=== PATIENT | male | born 1940 | race Caucasian/White ===

== ENCOUNTER 2020-07-23 06:59 | Outpatient (REF) | payer MEDICARE, SELFPAY ==
[2020-07-23 08:23] LABS: MANUAL DIFF FLAG NO
[2020-07-23 08:27] LABS: Basophils Percent Auto 0.3 % (0-2); Eosinophils Absolute Auto 0.1 X10*3/uL (0.0-0.4); Eosinophils Percent Auto 1.9 % (0-4); Hematocrit 38.7 % (42-52); Imm Gran Abs Auto 0.05 X10*3/uL (0.00-0.03); Imm Gran Pct Auto 0.8 % (0.0-0.4); Lymphocytes Absolute Auto 1.8 X10*3/uL (1.2-4.9); Lymphocytes Percent Auto 29.7 % (20-40); Mean Corpuscular HGB Conc 33.6 g/dl (31.0-36.0); Mean Corpuscular Hemoglobin 32.4 pg (27.0-33.0); Mean Corpuscular Volume 96.5 fL (80-98); Mean Platelet Volume 11.2 fL (9.4-12.4); Monocytes Absolute Auto 0.5 X10*3/uL (0.1-1.2); Monocytes Percent Auto 8.3 % (2-11); Neutrophils Absolute Auto 3.5 X10*3/uL (2.0-8.3); Platelet Count 186 X10*3/uL (160-400); Red Blood Count 4.01 X10*6/uL (4.60-5.80); Red Cell Distribution Width 12.5 % (11.0-16.0); White Blood Count 5.9 X10*3/uL (4.8-10.8)
[2020-07-23 08:36] LABS: Alanine Aminotransferase 7 U/L (0-40); Albumin Level 3.7 g/dL (3.5-5.0); Alkaline Phosphatase 71 U/L (39-117); Anion Gap 11 (12-20); Aspartate Amino Transferase 10 U/L (5-37); Bilirubin Total 0.6 mg/dL (0.0-1.0); Blood Urea Nitrogen 25 mg/dL (9-16); Calcium 9.2 mg/dL (8.4-10.2); Carbon Dioxide 25 mmol/L (22-29); Chloride 104 mmol/L (96-108); Estimated Glomerular Filt Rate > 60; Glucose Fasting 96 mg/dL (60-99); Lactate Dehydrogenase 135 U/L (118-273); Potassium 4.3 mmol/l (3.3-5.1); Sodium 136 mmol/L (135-145); Total Protein 6.4 g/dL (6.5-8.0)
[2020-07-28 12:42] LABS: Testosterone, Total 11 ng/dL (250-1100)
== END 2020-07-23 07:00 | disposition home or self-care (01) ==
LOC: HO.HSH3E 06:59
PROVIDERS: Visit Provider Nurse Practitioner
DX: C61 Malignant neoplasm of prostate (principal)
CPT/HCPCS: 36415; 80053; 83615; 84153; 84403; 85025

== ENCOUNTER 2020-08-27 05:50 | Outpatient (REF) | payer MEDICARE, SELFPAY ==
[2020-08-26 08:07] LABS: MANUAL DIFF FLAG NO
[2020-08-26 08:09] LABS: Basophils Percent Auto 0.3 % (0-2); Eosinophils Absolute Auto 0.1 X10*3/uL (0.0-0.4); Eosinophils Percent Auto 0.9 % (0-4); Hematocrit 38.8 % (42-52); Hemoglobin 13.2 g/dl (14.0-18.0); Imm Gran Abs Auto 0.05 X10*3/uL (0.00-0.03); Imm Gran Pct Auto 0.9 % (0.0-0.4); Lymphocytes Percent Auto 34.3 % (20-40); Mean Corpuscular Hemoglobin 32.8 pg (27.0-33.0); Mean Corpuscular Volume 96.3 fL (80-98); Mean Platelet Volume 10.8 fL (9.4-12.4); Monocytes Absolute Auto 0.5 X10*3/uL (0.1-1.2); Monocytes Percent Auto 7.8 % (2-11); Neutrophils Absolute Auto 3.2 X10*3/uL (2.0-8.3); Neutrophils Percent Auto 55.8 % (45-73); Platelet Count 210 X10*3/uL (160-400); Red Blood Count 4.03 X10*6/uL (4.60-5.80); Red Cell Distribution Width 12.9 % (11.0-16.0); White Blood Count 5.8 X10*3/uL (4.8-10.8)
[2020-08-26 08:38] LABS: Alanine Aminotransferase 10 U/L (0-40); Albumin Level 3.7 g/dL (3.5-5.0); Alkaline Phosphatase 72 U/L (39-117); Anion Gap 13 (12-20); Aspartate Amino Transferase 11 U/L (5-37); Bilirubin Total 0.8 mg/dL (0.0-1.0); Blood Urea Nitrogen 21 mg/dL (9-16); Calcium 9.4 mg/dL (8.4-10.2); Carbon Dioxide 26 mmol/L (22-29); Chloride 103 mmol/L (96-108); Estimated Glomerular Filt Rate > 60; Glucose Fasting 108 mg/dL (60-99); Potassium 5.2 mmol/l (3.3-5.1); Sodium 137 mmol/L (135-145); Total Protein 6.5 g/dL (6.5-8.0)
[2020-08-31 16:22] LABS: Testosterone, Total 7 ng/dL (250-1100)
== END 2020-08-27 05:51 | disposition home or self-care (01) ==
LOC: HO.HSH3E 05:50
PROVIDERS: Visit Provider Internal Medicine Medical Oncology
DX: I10 Essential (primary) hypertension (principal); E03.9 Hypothyroidism, unspecified; Z12.5 Encounter for screening for malignant neoplasm of prostate
CPT/HCPCS: 36415; 80053; 84153; 84403; 85025

== ENCOUNTER 2020-10-09 15:02 | Outpatient (REF) | payer MEDICARE, SELFPAY ==
[2020-10-09 15:14] LABS: Glucose Urine UA NEG (NEG); Leukocyte Esterase Urine TRACE (NEG); Nitrite Urine POS (NEG); Specific Gravity - Urine >= 1.030 (1.005-1.025); UACC Culture Trigger YES; Urine Blood TRACE (NEG); Urine Ketones NEG (NEG); Urine Protein NEG (NEG-TRACE)
[2020-10-09 15:21] LABS: Appearance Urine HAZY; Color Urine YELLOW
[2020-10-09 15:25] LABS: Bacteria Urine TRACE /LPF; Mucus Urine 1+ /LPF; Squamous Epithelial Cell Urine 1+ /LPF
== END 2020-10-09 15:03 | disposition home or self-care (01) ==
LOC: HO.HSH3E 15:02
PROVIDERS: Visit Provider Internal Medicine Medical Oncology
DX: R35.0 Frequency of micturition (principal)
CPT/HCPCS: 81001; 81003; 87086

== ENCOUNTER 2020-10-11 18:47 | Outpatient (REF) | payer MEDICARE, SELFPAY ==
[2020-10-11 18:54] LABS: Appearance Urine CLEAR; Color Urine YELLOW; Glucose Urine UA NEG (NEG); Leukocyte Esterase Urine TRACE (NEG); Nitrite Urine POS (NEG); PH 5.5 (5.0-8.0); Specific Gravity - Urine >= 1.030 (1.005-1.025); UACC Culture Trigger YES; Urine Blood TRACE (NEG); Urine Ketones NEG (NEG); Urine Protein NEG (NEG-TRACE)
[2020-10-11 19:01] LABS: Bacteria Urine 2+ /LPF; Calcium Oxalate Crystals Urine TRACE /LPF; RBC Urine 0-2 /HPF (0); WBC Urine 0-2 /HPF (0-4)
== END 2020-10-11 18:48 | disposition home or self-care (01) ==
LOC: HO.LNP 18:47
PROVIDERS: Visit Provider Internal Medicine Medical Oncology
DX: R30.0 Dysuria (principal)
CPT/HCPCS: 81001; 81003; 87086; 87088; 87186

== ENCOUNTER 2020-10-18 07:47 | Outpatient (REF) | payer MEDICARE, SELFPAY ==
[2020-10-18 08:57] LABS: MANUAL DIFF FLAG NO
[2020-10-18 09:02] LABS: Basophils Percent Auto 0.2 % (0-2); Eosinophils Absolute Auto 0.1 X10*3/uL (0.0-0.4); Eosinophils Percent Auto 2.4 % (0-4); Hematocrit 39.3 % (42-52); Hemoglobin 12.9 g/dl (14.0-18.0); Imm Gran Abs Auto 0.02 X10*3/uL (0.00-0.03); Imm Gran Pct Auto 0.4 % (0.0-0.4); Lymphocytes Absolute Auto 1.9 X10*3/uL (1.2-4.9); Lymphocytes Percent Auto 37.4 % (20-40); Mean Corpuscular HGB Conc 32.8 g/dl (31.0-36.0); Mean Corpuscular Hemoglobin 32.3 pg (27.0-33.0); Mean Corpuscular Volume 98.3 fL (80-98); Mean Platelet Volume 11.1 fL (9.4-12.4); Monocytes Absolute Auto 0.5 X10*3/uL (0.1-1.2); Monocytes Percent Auto 10.4 % (2-11); Neutrophils Absolute Auto 2.5 X10*3/uL (2.0-8.3); Neutrophils Percent Auto 49.2 % (45-73); Platelet Count 182 X10*3/uL (160-400); Red Cell Distribution Width 12.8 % (11.0-16.0)
[2020-10-18 09:31] LABS: Alanine Aminotransferase 7 U/L (0-40); Albumin Level 3.8 g/dL (3.5-5.0); Alkaline Phosphatase 71 U/L (39-117); Anion Gap 13 (12-20); Aspartate Amino Transferase 11 U/L (5-37); Bilirubin Total 0.6 mg/dL (0.0-1.0); Blood Urea Nitrogen 23 mg/dL (9-16); Calcium 9.2 mg/dL (8.4-10.2); Carbon Dioxide 26 mmol/L (22-29); Chloride 103 mmol/L (96-108); Estimated Glomerular Filt Rate > 60; Glucose Fasting 90 mg/dL (60-99); Lactate Dehydrogenase 144 U/L (118-273); Potassium 4.6 mmol/L (3.3-5.1); Sodium 137 mmol/L (135-145); Total Protein 6.4 g/dL (6.5-8.0)
[2020-10-23 18:11] LABS: Testosterone, Total 9 ng/dL (250-1100)
== END 2020-10-18 07:48 | disposition home or self-care (01) ==
LOC: HO.HSH3E 07:47
PROVIDERS: Visit Provider Internal Medicine Endocrinology, Diabetes & Metabolism
DX: Z12.5 Encounter for screening for malignant neoplasm of prostate (principal); C61 Malignant neoplasm of prostate
CPT/HCPCS: 36415; 80053; 83615; 84153; 84403; 85025

== ENCOUNTER 2021-01-15 07:07 | Outpatient (REF) | payer MEDICARE, SELFPAY ==
[2021-01-15 09:09] LABS: Hematocrit 36.4 % (42-52); Hemoglobin 12.2 g/dl (14.0-18.0); Mean Corpuscular HGB Conc 33.5 g/dl (31.0-36.0); Mean Corpuscular Hemoglobin 32.7 pg (27.0-33.0); Mean Corpuscular Volume 97.6 fL (80-98); Mean Platelet Volume 10.9 fL (9.4-12.4); Platelet Count 165 X10*3/uL (160-400); Red Blood Count 3.73 X10*6/uL (4.60-5.80); Red Cell Distribution Width 12.6 % (11.0-16.0); White Blood Count 5.1 X10*3/uL (4.8-10.8)
[2021-01-15 09:30] LABS: Alanine Aminotransferase 7 U/L (0-40); Albumin Level 3.8 g/dL (3.5-5.0); Alkaline Phosphatase 68 U/L (39-117); Anion Gap 11 (12-20); Aspartate Amino Transferase 11 U/L (5-37); Bilirubin Total 0.8 mg/dL (0.0-1.0); Blood Urea Nitrogen 32 mg/dL (9-16); Calcium 9.4 mg/dL (8.4-10.2); Carbon Dioxide 25 mmol/L (22-29); Chloride 106 mmol/L (96-108); Estimated Glomerular Filt Rate > 60; Glucose Random 93 mg/dL (60-115); Potassium 5.5 mmol/L (3.3-5.1); Sodium 136 mmol/L (135-145); Total Protein 6.3 g/dL (6.5-8.0)
[2021-01-15 09:59] LABS: Free T4 (Free Thyroxine) 1.01 ng/dL (0.71-1.85); Prostate Specific Antigen 8.11 ng/mL (<0.05-4.0); Thyroid Stimulating Hormone 2.06 uIU/mL (0.32-4.0); Vitamin D 25-OH Total 44.4 ng/mL (>30)
[2021-01-19 17:02] LABS: Testosterone, Total 8 ng/dL (250-1100)
== END 2021-01-15 07:08 | disposition home or self-care (01) ==
LOC: HO.HSH3E 07:07
PROVIDERS: Visit Provider Internal Medicine Medical Oncology
DX: E03.9 Hypothyroidism, unspecified (principal); C61 Malignant neoplasm of prostate; Z12.5 Encounter for screening for malignant neoplasm of prostate
CPT/HCPCS: 36415; 80053; 82306; 84153; 84403; 84439; 84443; 85027

== ENCOUNTER 2021-01-27 07:38 | Outpatient (REF) | payer MEDICARE, SELFPAY ==
[2021-01-31 02:01] LABS: Testosterone, Total 19 ng/dL (250-1100)
== END 2021-01-27 07:39 | disposition home or self-care (01) ==
LOC: HO.HSH3E 07:38
PROVIDERS: Visit Provider Internal Medicine Medical Oncology
DX: Z12.5 Encounter for screening for malignant neoplasm of prostate (principal); C61 Malignant neoplasm of prostate
CPT/HCPCS: 36415; 84153; 84403

== ENCOUNTER 2021-02-04 05:30 | Outpatient (REF) | payer MEDICARE, SELFPAY ==
[2021-02-04 06:21] LABS: Basophils Percent Auto 0.1 % (0-2); Eosinophils Percent Auto 0.6 % (0-4); Hematocrit 36.9 % (42-52); Hemoglobin 12.6 g/dl (14.0-18.0); Imm Gran Abs Auto 0.04 X10*3/uL (0.00-0.03); Imm Gran Pct Auto 0.6 % (0.0-0.4); Lymphocytes Absolute Auto 1.5 X10*3/uL (1.2-4.9); Lymphocytes Percent Auto 21.6 % (20-40); MANUAL DIFF FLAG NO; Mean Corpuscular HGB Conc 34.1 g/dl (31.0-36.0); Mean Corpuscular Volume 96.6 fL (80-98); Mean Platelet Volume 10.6 fL (9.4-12.4); Monocytes Absolute Auto 0.5 X10*3/uL (0.1-1.2); Monocytes Percent Auto 7.6 % (2-11); Neutrophils Absolute Auto 4.7 X10*3/uL (2.0-8.3); Neutrophils Percent Auto 69.5 % (45-73); Platelet Count 181 X10*3/uL (160-400); Red Blood Count 3.82 X10*6/uL (4.60-5.80); Red Cell Distribution Width 12.6 % (11.0-16.0); White Blood Count 6.8 X10*3/uL (4.8-10.8)
[2021-02-04 06:47] LABS: Potassium 5.8 mmol/L (3.3-5.1)
[2021-02-04 10:24] LABS: Prostate Specific Antigen Scr 8.79 ng/mL (<0.05-4.0)
== END 2021-02-04 05:31 | disposition home or self-care (01) ==
LOC: HO.HSH3E 05:30
PROVIDERS: Visit Provider Internal Medicine Medical Oncology
DX: C61 Malignant neoplasm of prostate (principal)
CPT/HCPCS: 36415; 84132; 84153; 85025

== ENCOUNTER 2021-04-16 05:00 | Outpatient (REF) | payer MEDICARE, SELFPAY ==
[2021-04-16 07:54] LABS: MANUAL DIFF FLAG NO
[2021-04-16 07:57] LABS: Basophils Percent Auto 0.5 % (0-2); Eosinophils Absolute Auto 0.2 X10*3/uL (0.0-0.4); Eosinophils Percent Auto 1.7 % (0-4); Hematocrit 43.6 % (42-52); Hemoglobin 14.6 g/dl (14.0-18.0); Imm Gran Abs Auto 0.04 X10*3/uL (0.00-0.03); Imm Gran Pct Auto 0.5 % (0.0-0.4); Lymphocytes Absolute Auto 2.4 X10*3/uL (1.2-4.9); Lymphocytes Percent Auto 27.4 % (20-40); Mean Corpuscular HGB Conc 33.5 g/dl (31.0-36.0); Mean Corpuscular Hemoglobin 32.4 pg (27.0-33.0); Mean Corpuscular Volume 96.7 fL (80-98); Mean Platelet Volume 11.7 fL (9.4-12.4); Monocytes Absolute Auto 0.7 X10*3/uL (0.1-1.2); Monocytes Percent Auto 7.8 % (2-11); Neutrophils Absolute Auto 5.4 X10*3/uL (2.0-8.3); Neutrophils Percent Auto 62.1 % (45-73); Platelet Count 199 X10*3/uL (160-400); Red Blood Count 4.51 X10*6/uL (4.60-5.80); White Blood Count 8.7 X10*3/uL (4.8-10.8)
[2021-04-16 08:12] LABS: Alanine Aminotransferase 50 U/L (0-40); Albumin Level 3.6 g/dL (3.5-5.0); Alkaline Phosphatase 114 U/L (39-117); Anion Gap 16 (12-20); Aspartate Amino Transferase 21 U/L (5-37); Blood Urea Nitrogen 22 mg/dL (9-16); Calcium 9.9 mg/dL (8.4-10.2); Carbon Dioxide 26 mmol/L (22-29); Chloride 100 mmol/L (96-108); Estimated Glomerular Filt Rate > 60; Glucose Random 94 mg/dL (60-115); Lactate Dehydrogenase 129 U/L (118-273); Potassium 4.6 mmol/L (3.3-5.1); Sodium 137 mmol/L (135-145); Total Protein 6.1 g/dL (6.5-8.0)
[2021-04-16 09:17] LABS: Prostate Specific Antigen 22.44 ng/mL (<0.05-4.0)
[2021-04-22 12:07] LABS: Testosterone, Total <1 ng/dL (250-1100)
== END 2021-04-16 05:01 ==
LOC: HO.HSH3E 05:00
PROVIDERS: Visit Provider Internal Medicine Medical Oncology
DX: Z12.5 Encounter for screening for malignant neoplasm of prostate (principal); C61 Malignant neoplasm of prostate
CPT/HCPCS: 36415; 80053; 83615; 84153; 84403; 85025

== ENCOUNTER 2021-04-23 18:29 | Inpatient (IN) | payer MEDICARE, SELFPAY ==
--- NOTE | ~2021-04-23 | CT_ITS ---
EXAMINATION: CT HEAD WITHOUT CONTRAST CLINICAL INFORMATION: Vomiting, history of prostate cancer. COMPARISON: None TECHNIQUE: Contiguous axial imaging was performed from the skull base to vertex without intravenous administration of contrast. This CT examination was performed using dose optimization techniques as appropriate, variously including the following: *Automated exposure control *Adjustment of mA and/or kV according to patient size (this includes techniques or standardized protocols for targeted exams where dose is matched to indication/reason for exam; i.e. extremities or head) *Use of iterative reconstruction technique DLP: 713 mGy-cm FINDINGS: There is no evidence of acute intracranial hemorrhage or territorial infarction. There is a right frontal lobe and right occipital lobe encephalomalacia from old insult. No abnormal mass effect or midline shift is seen. Ball to white matter differentiation is well preserved. No extra-axial fluid collections are identified. The ventricles are normal in size. There is no abnormal attenuation within the brain parenchyma. The osseous structures and soft tissues are normal. The mastoid air cells and visualized portions of the paranasal sinuses are well aerated. CT/CT head/brain wo con IMPRESSION: No acute intracranial process seen. Old right frontal lobe and right occipital lobe encephalomalacia from old insult.
--- NOTE | ~2021-04-23 | CT_ITS ---
EXAMINATION: CT ABDOMEN AND PELVIS WITHOUT CONTRAST CLINICAL INFORMATION: Vomiting. Question small bowel obstruction COMPARISON: None. TECHNIQUE: Multidetector volumetric imaging was performed from the lung bases through the pubic symphysis. Sagittal and coronal reformatted images were obtained on the technologist workstation. This CT examination was performed using dose optimization techniques as appropriate, variously including the following: *Automated exposure control *Adjustment of mA and/or kV according to patient size (this includes techniques or standardized protocols for targeted exams where dose is matched to indication/reason for exam; i.e. extremities or head) *Use of iterative reconstruction technique FINDINGS: The lack of intravenous contrast limits evaluation of the solid visceral organs including the liver, spleen, pancreas, and kidneys. LUNG BASES: There patchy areas of interlobular septal thickening and reticulation with intervening groundglass opacity in the right lower lobe. There are minimal similar clustered changes in the most inferior aspect of the left lower lobe as well. Small pericardial effusion is present. Prominent epicardial fat. LIVER, GALLBLADDER, AND BILIARY TREE: Limited non-contrast evaluation is normal. No gross focal hepatic lesion. Normal liver size and contour. No gross biliary ductal dilation. There is layering density in the gallbladder which may represent hyperdense bile or sludge. PANCREAS: Limited non-contrast evaluation is normal. No rahul-pancreatic fluid. SPLEEN: Limited non-contrast evaluation is normal. ADRENAL GLANDS: There is diffuse low-density thickening of both adrenal glands which could reflect adrenal hyperplasia KIDNEYS AND URETERS: Extensive vascular calcifications in the renal hilum. No calculi or hydronephrosis. GASTROINTESTINAL TRACT: Stomach and small bowel are nondilated. Scattered colonic diverticulosis. No evidence of colitis or diverticulitis. No pneumatosis. No colonic wall thickening or pericolonic inflammatory changes. There is a moderate volume of stool in the rectal vault. No rectal wall thickening or perirectal inflammatory changes to suggest or colitis however. ABDOMINAL WALL: Midline laparotomy changes. LYMPH NODES: No pathologically enlarged lymph nodes in the abdomen or pelvis. VASCULAR: Severe circumferential calcified atherosclerotic changes of the aorta and bilateral iliac arteries. No aneurysm. BLADDER: Unremarkable. PELVIC VISCERA: Prostate is surgically absent. OSSEOUS STRUCTURES: Multilevel compression fractures are seen. There is age-indeterminate vertebral plana of L4. There is mild superior endplate compression deformity of L5. There is superior endplate compression deformity of L2. Severe lower lumbar facet arthropathy. Prior ORIF of the left hip with 3 compression screws. Healed right inferior pubic ramus fracture. CT/CT abdomen pelvis wo con IMPRESSION: No small bowel obstruction. There are nonspecific abnormalities at the lung bases which could be chronic, for example from fibrosis, or reflect acute infection/inflammation. Multiple age-indeterminate lumbar compression fractures, most notably at L4 and L5. Correlate with symptoms of back pain. Extensive calcified atherosclerotic vascular disease.
--- NOTE | ~2021-04-23 | XR_ITS ---
EXAMINATION: XR CHEST CLINICAL INFORMATION: Pneumonia. COMPARISON: None TECHNIQUE: Frontal view of the chest was obtained. FINDINGS: No focal airspace consolidation. No pleural effusion or pneumothorax. Unremarkable cardiomediastinal silhouette. Partially visualized orthopedic hardware within the left humerus. XR/XR chest 1V IMPRESSION: No acute cardiopulmonary findings.
[2021-04-23 18:48] VITALS: BP 151/68; PULSE 133; RESP 16; O2SAT 96; BMI 23.8
--- NOTE | 2021-04-23 19:00 | ED.NAVMDI ---
HPI - Nausea/Vomiting/Diarrhea General Chief complaint: Nausea/Vomiting/Diarrhea Stated complaint: TACHYCARDIA, N/V X 1 WEEK Time Seen by Provider: 04/23/21 18:46 Source: patient, EMS and RN notes reviewed Mode of arrival: EMS History of Present Illness HPI Narrative: Patient from correction with history of dementia prostate cancer recurrent UTIs history of PTSD and alcohol dependence sent from correction for tachycardia with heart rate in the 130s and projectile vomiting multiple times today. Patient denies any abdominal pain or abdominal distention moving his bowels normally Related Data Allergies Allergy/AdvReac Type Severity Reaction Status Date / Time No Known Allergies Allergy Verified 04/23/21 19:00 Review of Systems Review of Systems: Yes all other systems are reviewed and are negative [facility] Past Medical History Medical History Alcohol dependence Anxiety Benign prostatic hyperplasia Dementia Depression Hypothyroidism Obesity Prostate cancer Psoriasis PTSD (post-traumatic stress disorder) Urinary incontinence Social History Social History Advance Directives: No Advance Directives Information Provided: Yes Physical Exam Vital Signs: Vital Signs: Last Vital Signs Pulse 123 H 04/23/21 22:30 Resp 16 04/23/21 22:30 BP 138/67 04/23/21 22:30 Pulse Ox 98 04/23/21 22:30 Body Mass Index 23.8 Appearance: Alert. Oriented X3. No acute distress. Vomited 1 time in the ER Eyes: No pallor or icterus ENT: Pharynx normal. Oral Mucosa moist Neck: Normal inspection. Neck supple. CVS: Normal heart rate and rhythm. Pulses normal. Respiratory: No respiratory distress. Equal air entry bilateral, no wheezing/rales/rhonchi Abdomen: Soft and nontender. Bowel sounds are present, no mass palpable, no CVA tenderness Skin: Skin warm and dry. Normal skin color. Normal skin turgor. Extremities: No lower extremity edema. No calf tenderness Neuro: Oriented x 3. No motor deficit. MDM - Nausea/Vomiting/Diarrhea MDM Narrative Medical decision making narrative: Patient with PHILIP with leukocytosis with lactic acidosis meeting criteria for sepsis likely UTI will start patient on IV Rocephin IV fluids were given more than 30 cc/kilogram Lab Data Attestation: I reviewed the patient's lab results. Result diagrams: 04/23/21 19:23 04/23/21 19:23 Labs: Lab Results 04/23/21 04/23/21 04/23/21 Range/Units 19:23 19:23 19:23 WBC 22.2 H (4.8-10.8) X10*3/uL RBC 4.53 L (4.60-5.80) X10*6/uL Hgb 14.7 (14.0-18.0) g/dl Hct 43.4 (42-52) % MCV 95.8 (80-98) fL MCH 32.5 (27.0-33.0) pg MCHC 33.9 (31.0-36.0) g/dl RDW 12.0 (11.0-16.0) % Plt Count 219 (160-400) X10*3/uL MPV 11.2 (9.4-12.4) fL Immature Gran % (Auto) 0.5 H (0.0-0.4) % Neut % (Auto) 85.6 H (45-73) % Lymph % (Auto) 7.8 L (20-40) % Knott % (Auto) 5.8 (2-11) % Eos % (Auto) 0.1 (0-4) % Baso % (Auto) 0.2 (0-2) % Lymph # (Auto) 1.7 (1.2-4.9) X10*3/uL Knott # (Auto) 1.3 H (0.1-1.2) X10*3/uL Eos # (Auto) 0.0 (0.0-0.4) X10*3/uL Baso # (Auto) 0.0 (0.0-0.2) X10*3/uL Abs Immat Gran (auto) 0.12 H (0.00-0.03) X10*3/uL Absolute Neuts (auto) 19.0 H (2.0-8.3) X10*3/uL Absolute Nucleated RBC 0.000 (0.0-0.012) X10*3/uL Nucleated RBC % (auto) 0.0 (0.0-0.2) /100WBC PT 10.7 (9.9-13.0) SEC INR 0.9 (0.9-1.1) Sodium 136 (135-145) mmol/L Potassium 4.4 (3.3-5.1) mmol/L Chloride 101 (96-108) mmol/L Carbon Dioxide 20 L (22-29) mmol/L Anion Gap 19 (12-20) BUN 35 H D (9-16) mg/dL Creatinine 1.60 H (0.5-1.4) mg/dL Estim Creat Clear Calc 40.5 Estimated GFR 42 Random Glucose 121 H (60-115) mg/dL Lactic Acid (0.5-2.0) mmol/L Calcium 9.7 (8.4-10.2) mg/dL Magnesium 1.9 (1.6-2.6) mg/dL Total Bilirubin 1.1 H (0.0-1.0) mg/dL AST 37 D (5-37) U/L ALT 48 H (0-40) U/L Alkaline Phosphatase 109 (39-117) U/L Total Protein 6.3 L (6.5-8.0) g/dL Albumin 3.4 L (3.5-5.0) g/dL Lipase 7 L (8-78) U/L Urine Color Urine Appearance Urine pH (5.0-8.0) Ur Specific [place] (1.005-1.025) Urine Protein (NEG-TRACE) MG/DL Urine Glucose (UA) (NEG) MG/DL Urine Ketones (NEG) MG/DL Urine Blood (NEG) Urine Nitrite (NEG) Ur Leukocyte Esterase (NEG) Urine RBC (0) /HPF Urine WBC (0-4) /HPF Ur Squamous Epith Cells /LPF Urine Bacteria /LPF Hyaline Casts /LPF Granular Casts /LPF Urine Mucus /LPF COVID-19 (SELENA) (Negative) COVID-19 Clin Com 04/23/21 04/23/21 04/23/21 Range/Units 19:23 19:23 22:00 WBC (4.8-10.8) X10*3/uL RBC (4.60-5.80) X10*6/uL Hgb (14.0-18.0) g/dl Hct (42-52) % MCV (80-98) fL MCH (27.0-33.0) pg MCHC (31.0-36.0) g/dl RDW (11.0-16.0) % Plt Count (160-400) X10*3/uL MPV (9.4-12.4) fL Immature Gran % (Auto) (0.0-0.4) % Neut % (Auto) (45-73) % Lymph % (Auto) (20-40) % Knott % (Auto) (2-11) % Eos % (Auto) (0-4) % Baso % (Auto) (0-2) % Lymph # (Auto) (1.2-4.9) X10*3/uL Knott # (Auto) (0.1-1.2) X10*3/uL Eos # (Auto) (0.0-0.4) X10*3/uL Baso # (Auto) (0.0-0.2) X10*3/uL Abs Immat Gran (auto) (0.00-0.03) X10*3/uL Absolute Neuts (auto) (2.0-8.3) X10*3/uL Absolute Nucleated RBC (0.0-0.012) X10*3/uL Nucleated RBC % (auto) (0.0-0.2) /100WBC PT (9.9-13.0) SEC INR (0.9-1.1) Sodium (135-145) mmol/L Potassium (3.3-5.1) mmol/L Chloride (96-108) mmol/L Carbon Dioxide (22-29) mmol/L Anion Gap (12-20) BUN (9-16) mg/dL Creatinine (0.5-1.4) mg/dL Estim Creat Clear Calc Estimated GFR Random Glucose (60-115) mg/dL Lactic Acid 3.9 H* (0.5-2.0) mmol/L Calcium (8.4-10.2) mg/dL Magnesium (1.6-2.6) mg/dL Total Bilirubin (0.0-1.0) mg/dL AST (5-37) U/L ALT (0-40) U/L Alkaline Phosphatase (39-117) U/L Total Protein (6.5-8.0) g/dL Albumin (3.5-5.0) g/dL Lipase (8-78) U/L Urine Color YELLOW Urine Appearance HAZY Urine pH 6.0 (5.0-8.0) Ur Specific [place] >= 1.030 H (1.005-1.025) Urine Protein 1+ H (NEG-TRACE) MG/DL Urine Glucose (UA) NEG (NEG) MG/DL Urine Ketones NEG (NEG) MG/DL Urine Blood 1+ H (NEG) Urine Nitrite POS H (NEG) Ur Leukocyte Esterase TRACE H (NEG) Urine RBC 1-4 (0) /HPF Urine WBC 1-4 (0-4) /HPF Ur Squamous Epith Cells 1+ /LPF Urine Bacteria 3+ /LPF Hyaline Casts 1-4 /LPF Granular Casts 10-14 /LPF Urine Mucus 2+ /LPF COVID-19 (SELENA) Negative (Negative) COVID-19 Clin Com See Note ECG Data Attestation: I personally reviewed and interpreted this ECG as follows: Interpretation: Junctional rhythm with heart rate 124 beats per minute left axis deviation no acute ST T wave changes for baseline no acute ischemia Discharge Plan Discharge Clinical Impression: UTI (urinary tract infection) Qualifiers: Urinary tract infection type: acute cystitis Hematuria presence: without hematuria Qualified Code(s): N30.00 - Acute cystitis without hematuria Vomiting Qualifiers: Vomiting type: projectile vomiting Nausea presence: with nausea Qualified Code(s): R11.12 - Projectile vomiting Patient Disposition: Admitted As Inpatient
--- NOTE | 2021-04-23 19:01 | ECG_ITS ---
Test Reason : NAUSEA Blood Pressure : / mmHG Vent. Rate : 124 BPM Atrial Rate : 127 BPM P-R Int : 000 ms QRS Dur : 094 ms QT Int : 314 ms P-R-T Axes : 000 -44 069 degrees QTc Int : 451 ms Poor data quality, interpretation may be adversely affected Sinus tachycardia Left axis deviation Low voltage QRS Lateral infarct , age undetermined Inferior-posterior infarct , age undetermined Abnormal ECG No previous ECGs available Referred By: Kishor Guevara Electronically Signed By:DIRK YANEZ
[2021-04-23] MEDS: 0.9 % Sodium Chloride 1,000 ML 999 ML IVCONT ×2 (19:23→21:34)
[2021-04-23] MEDS: ondansetron HCL 4 MG/2 ML VIAL IVPUSH (19:24)
[2021-04-23] MEDS: Morphine Sulfate 4 MG/ML CARTRIDGE IVPUSH (19:24)
[2021-04-23 19:33] LABS: MANUAL DIFF FLAG NO
[2021-04-23 19:35] LABS: Basophils Percent Auto 0.2 % (0-2); Eosinophils Percent Auto 0.1 % (0-4); Hematocrit 43.4 % (42-52); Hemoglobin 14.7 g/dl (14.0-18.0); Imm Gran Abs Auto 0.12 X10*3/uL (0.00-0.03); Imm Gran Pct Auto 0.5 % (0.0-0.4); Lymphocytes Absolute Auto 1.7 X10*3/uL (1.2-4.9); Lymphocytes Percent Auto 7.8 % (20-40); Mean Corpuscular HGB Conc 33.9 g/dl (31.0-36.0); Mean Corpuscular Hemoglobin 32.5 pg (27.0-33.0); Mean Corpuscular Volume 95.8 fL (80-98); Mean Platelet Volume 11.2 fL (9.4-12.4); Monocytes Absolute Auto 1.3 X10*3/uL (0.1-1.2); Monocytes Percent Auto 5.8 % (2-11); Neutrophils Percent Auto 85.6 % (45-73); Platelet Count 219 X10*3/uL (160-400); Red Blood Count 4.53 X10*6/uL (4.60-5.80); White Blood Count 22.2 X10*3/uL (4.8-10.8)
[2021-04-23 19:41] LABS: INTERNATIONAL NORM RATIO 0.9 (0.9-1.1); Prothrombin Time 10.7 SEC (9.9-13.0)
[2021-04-23 19:55] LABS: Alanine Aminotransferase 48 U/L (0-40); Albumin Level 3.4 g/dL (3.5-5.0); Alkaline Phosphatase 109 U/L (39-117); Anion Gap 19 (12-20); Aspartate Amino Transferase 37 U/L (5-37); Bilirubin Total 1.1 mg/dL (0.0-1.0); Blood Urea Nitrogen 35 mg/dL (9-16); Calcium 9.7 mg/dL (8.4-10.2); Carbon Dioxide 20 mmol/L (22-29); Chloride 101 mmol/L (96-108); Creatinine Clr Calc Pharmacy 40.5; Estimated Glomerular Filt Rate 42; Glucose Random 121 mg/dL (60-115); Lipase 7 U/L (8-78); Magnesium 1.9 mg/dL (1.6-2.6); Potassium 4.4 mmol/L (3.3-5.1); Sodium 136 mmol/L (135-145); Total Protein 6.3 g/dL (6.5-8.0)
[2021-04-23 19:58] LABS: Lactic Acid 3.9 mmol/L (0.5-2.0)
[2021-04-23 20:05] LABS: COVID-19 Test Negative (Negative); IDNOW Serial# 55D5AD1C
[2021-04-23] MEDS: cefTRIAXone sodium 1 GM in 0.9 % Sodium Chloride 50 ML IV (21:33)
[2021-04-23 21:34] LABS: Reflex Lactate? Lactic Acid Added
[2021-04-23 21:37] VITALS: BP 140/69; PULSE 120; RESP 16; O2SAT 94
[2021-04-23 22:09] LABS: Appearance Urine HAZY; Color Urine YELLOW; Glucose Urine UA NEG (NEG); Leukocyte Esterase Urine TRACE (NEG); Nitrite Urine POS (NEG); Specific Gravity - Urine >= 1.030 (1.005-1.025); UACC Culture Trigger YES; Urine Blood 1+ (NEG); Urine Ketones NEG (NEG); Urine Protein 1+ MG/DL (NEG-TRACE)
[2021-04-23 22:16] LABS: Bacteria Urine 3+ /LPF; Mucus Urine 2+ /LPF; Squamous Epithelial Cell Urine 1+ /LPF
[2021-04-23 22:30] VITALS: BP 138/67; PULSE 123; RESP 16; O2SAT 98
--- NOTE | 2021-04-23 22:33 | PC.NURSE ---
Pt in NAD, breathing even and unlabored. Pending results and dispo.
[2021-04-24] VITALS (9 sets, daily range): BP systolic 106–138; BP diastolic 50–68; PULSE 75–116; RESP 13–18; TEMP 36.2–37.3; O2SAT 94–99
--- NOTE | 2021-04-24 00:01 | PM.IMHP ---
History of Present Illness Date of Service: 04/23/21 Chief Complaint: vomiting This is a 80-year-old male with past medical history of hypothyroidism, dementia, BPH, PTSD, anxiety and alcohol dependence who presents to the hospital with complaints of vomiting. Patient is agitated, and on cooperating but reports that his doctor sent him here because he was worried about him and hot wanted him to have checked out. According to the report from ED physician patient had projectile vomiting and therefore sent to the ED for further evaluation. Patient otherwise denies any headache, change in vision, no abdominal pain chest pain, no palpitations, no diarrhea constipation, no urinary symptoms and no lower extremity edema. Patient found to have a temp of 98.2?, heart rate of 133, respiratory rate of 16, blood pressure 151/68, satting 96% on room air. Currently blood pressure has improved to 1 12/68. Labs are significant for WBC count of 22.2, lactic acid of 3.9, BUN of 35 with a creatinine of 1.6 with a baseline around 0.9, UA positive for leukocyte esterase and nitrites. Abdominal CT shows no small-bowel obstruction, nonspecific abnormalities at the lung bases which could represent chronic changes and multiple age indeterminate lumbar compression fractures. Past medical history is obtained from EMR Review of Systems Review of Systems: Yes all other systems are reviewed and are negative [facility] Medical History Alcohol dependence Anxiety Benign prostatic hyperplasia Dementia Depression Hypothyroidism Obesity Prostate cancer Psoriasis PTSD (post-traumatic stress disorder) Urinary incontinence Social History Advance Directives: No Advance Directives Information Provided: Yes Meds Allergies Allergy/AdvReac Type Severity Reaction Status Date / Time No Known Allergies Allergy Verified 04/23/21 19:00 Active Medications: Current Medications Generic Name Dose Route Start Last Admin Trade Name Freq PRN Reason Stop Dose Admin Ceftriaxone Sodium 1 gm/ 50 mls @ 100 mls/hr 04/23/21 23:45 Sodium Chloride IV Q24H GABBY Lactated Ringer's 1,000 mls @ 100 mls/hr 04/23/21 23:45 Lr IVCONT .Q10H [facility] Home Medications Medication Instructions Recorded Confirmed Last Taken Type abiraterone 500 mg tablet 1,000 mg PO QAM 04/24/21 04/24/21 04/23/21 History carboxymethylcellulose sodium 1 % 1 drp OPHTHALMIC (EYE) DAILY 04/24/21 04/24/21 04/23/21 History eye drops cholecalciferol (vitamin D3) 25 50 mcg PO DAILY 04/24/21 04/24/21 04/23/21 History mcg (1,000 unit) tablet levothyroxine 75 mcg tablet 75 mcg PO DAILY 04/24/21 04/24/21 04/23/21 History lisinopril 2.5 mg tablet 2.5 mg PO DAILY 04/24/21 04/24/21 04/23/21 History melatonin 3 mg tablet 3 mg PO BEDTIME 04/24/21 04/24/21 04/23/21 History oxybutynin chloride 10 mg 10 mg PO DAILY 04/24/21 04/24/21 04/23/21 History tablet,extended release 24 hr paroxetine HCl 10 mg tablet 15 mg PO DAILY 04/24/21 04/24/21 04/23/21 History prednisone 5 mg tablet 5 mg PO BID 04/24/21 04/24/21 04/23/21 History tramadol 100 mg tablet 100 mg PO TID 04/24/21 04/24/21 04/23/21 History trazodone 50 mg tablet 50 mg PO BEDTIME 04/24/21 04/24/21 04/23/21 History Physical Exam Vital Signs and Narrative: Vital Signs: Last Vital Signs Pulse 123 H 04/23/21 22:30 Resp 16 04/23/21 22:30 BP 138/67 04/23/21 22:30 Pulse Ox 98 04/23/21 22:30 Body Mass Index 23.8 Const: Other: Oriented to self and place, slightly agitated and not cooperating Orientation/consciousness: patient oriented x3 Eyes: General: appearance normal, both eyes and all related structures Pupils: Equal, round and reactive pupils present Resp: Effort & Inspection: normal respiratory effort Auscultation: clear to auscultation bilaterally Cardio: Rate: regular rate Rhythm: regular rhythm GI: Palpation (GI): Soft to palpation Auscultation: normal bowel sounds Skin: General skin exam: no rashes or lesions noted Neuro: General: patient oriented x3 Cranial nerves: Yes Equal, round and reactive pupils present Cognition (Neuro): normal cognition Extrem: General: Yes normal to inspection and Yes no pedal edema Results Labs CBC and Chem 7: 04/23/21 19:23 04/23/21 19:23 Labs: Laboratory Results - last 24 hr 04/23/21 04/23/21 04/23/21 19:23 19:23 19:23 MCV 95.8 MCH 32.5 MCHC 33.9 RDW 12.0 Plt Count 219 MPV 11.2 Immature Gran % (Auto) 0.5 H Neut % (Auto) 85.6 H Lymph % (Auto) 7.8 L Gage % (Auto) 5.8 Eos % (Auto) 0.1 Baso % (Auto) 0.2 Lymph # (Auto) 1.7 Gage # (Auto) 1.3 H Eos # (Auto) 0.0 Baso # (Auto) 0.0 Abs Immat Gran (auto) 0.12 H Absolute Neuts (auto) 19.0 H Absolute Nucleated RBC 0.000 Nucleated RBC % (auto) 0.0 PT 10.7 INR 0.9 Anion Gap 19 Estim Creat Clear Calc 40.5 Estimated GFR 42 Random Glucose 121 H Lactic Acid Calcium 9.7 Magnesium 1.9 Total Bilirubin 1.1 H AST 37 D ALT 48 H Alkaline Phosphatase 109 Total Protein 6.3 L Albumin 3.4 L Lipase 7 L Urine Color Urine Appearance Urine pH Ur Specific [place] Urine Protein Urine Glucose (UA) Urine Ketones Urine Blood Urine Nitrite Ur Leukocyte Esterase Urine RBC Urine WBC Ur Squamous Epith Cells Urine Bacteria Hyaline Casts Granular Casts Urine Mucus COVID-19 (SELENA) COVID-19 Clin Com 04/23/21 04/23/21 04/23/21 19:23 19:23 22:00 MCV MCH MCHC RDW Plt Count MPV Immature Gran % (Auto) Neut % (Auto) Lymph % (Auto) Gage % (Auto) Eos % (Auto) Baso % (Auto) Lymph # (Auto) Gage # (Auto) Eos # (Auto) Baso # (Auto) Abs Immat Gran (auto) Absolute Neuts (auto) Absolute Nucleated RBC Nucleated RBC % (auto) PT INR Anion Gap Estim Creat Clear Calc Estimated GFR Random Glucose Lactic Acid 3.9 H* Calcium Magnesium Total Bilirubin AST ALT Alkaline Phosphatase Total Protein Albumin Lipase Urine Color YELLOW Urine Appearance HAZY Urine pH 6.0 Ur Specific [place] >= 1.030 H Urine Protein 1+ H Urine Glucose (UA) NEG Urine Ketones NEG Urine Blood 1+ H Urine Nitrite POS H Ur Leukocyte Esterase TRACE H Urine RBC 1-4 Urine WBC 1-4 Ur Squamous Epith Cells 1+ Urine Bacteria 3+ Hyaline Casts 1-4 Granular Casts 10-14 Urine Mucus 2+ COVID-19 (SELENA) Negative COVID-19 Clin Com See Note Imaging Radiologist's Impressions: Impressions Abdomen/Pelvis CT 04/23/21 19:02 IMPRESSION: No small bowel obstruction. There are nonspecific abnormalities at the lung bases which could be chronic, for example from fibrosis, or reflect acute infection/inflammation. Multiple age-indeterminate lumbar compression fractures, most notably at L4 and L5. Correlate with symptoms of back pain. Extensive calcified atherosclerotic vascular disease. Chest X-Ray 04/23/21 21:28 IMPRESSION: No acute cardiopulmonary findings. Assessment and Plan (1) UTI (urinary tract infection): Qualifiers: Hematuria presence: without hematuria Urinary tract infection type: acute cystitis Qualified Code(s): N30.00 - Acute cystitis without hematuria Status: Acute (2) Vomiting: Qualifiers: Nausea presence: with nausea Vomiting type: projectile vomiting Qualified Code(s): R11.12 - Projectile vomiting Status: Acute (3) PHILIP (acute kidney injury): Status: Acute (4) Lactic acidosis: Status: Acute 80-year-old male past medical history of hypothyroidism, hypertension, anxiety and depression as well as PTSD and BPH presents to the hospital after vomiting episode found to have UTI # vomiting - unclear etiology - CT abdomen negative - no recurrence while in the ED - will monitor - supportive measures with antiemetic # UTI - has leukocytosis, lactic acidosis and positive UA - will start him on IV antibiotic - follow cultures # PHILIP - most likely secondary to dehydration - IV fluids - follow BMP # lactic acidosis - most likely secondary to dehydration - resolved with IV fluids # hypertension - stable - will hold lisinopril in the setting of PHILIP - resume lisinopril once patient's kidney function is at baseline # hypothyroidism - continue levothyroxine DVT prophylaxis: Heparin subQ Quality Stroke Does the patient have a stroke diagnosis?: No VTE Prior VTE?: No VTE Risk Level:: Medical - moderate - high VTE Device Contraindication: Treatment Not Indicated VTE Drug Contraindication: N/A - Med Ordered
[2021-04-24] MEDS: Lactated Ringers 1,000 ML 100 ML IVCONT (00:19)
[2021-04-24 00:47] LABS: ~Lactic Acid-LAB USE ONLY 1.7 mmol/L (0.5-2.0)
--- NOTE | 2021-04-24 01:22 | PC.NURSE ---
pt a&o, denies any sob or chest pain. [t change into hospital bed. Sharlene care completed.
--- NOTE | 2021-04-24 01:26 | PC.NURSE ---
patient was move to a hospital bed .
[2021-04-24] MEDS: traZODone HCL 50 MG TABLET PO ×2 (02:20→21:15)
--- NOTE | 2021-04-24 03:11 | PC.NURSE ---
pt is sleeping at this time, no sign of distress.
--- NOTE | 2021-04-24 06:05 | PC.NURSE ---
pt a&O, completed bed change and rahul care. Iv site intact with no sign of infection. Pt awaiting for bed assignment. No sign of sob or chest pain. no distress at this time. Pt slept well during the evening.
[2021-04-24] MEDS: Levothyroxine Sodium 25 MCG TABLET 75 MCG PO (06:14)
[2021-04-24] MEDS: Heparin Sodium,Porcine 5,000 UNIT/ML VIAL 5000 UNIT SUBCUT ×2 (06:17→17:23)
--- NOTE | 2021-04-24 06:19 | PC.NURSE ---
medicated pt per mar.
[2021-04-24 07:21] LABS: MANUAL DIFF FLAG NO
[2021-04-24 07:22] LABS: Basophils Percent Auto 0.2 % (0-2); Eosinophils Absolute Auto 0.1 X10*3/uL (0.0-0.4); Eosinophils Percent Auto 0.5 % (0-4); Hematocrit 34.9 % (42-52); Hemoglobin 11.7 g/dl (14.0-18.0); Imm Gran Abs Auto 0.05 X10*3/uL (0.00-0.03); Imm Gran Pct Auto 0.5 % (0.0-0.4); Lymphocytes Absolute Auto 1.8 X10*3/uL (1.2-4.9); Lymphocytes Percent Auto 16.5 % (20-40); Mean Corpuscular HGB Conc 33.5 g/dl (31.0-36.0); Mean Corpuscular Hemoglobin 32.1 pg (27.0-33.0); Mean Corpuscular Volume 95.9 fL (80-98); Mean Platelet Volume 10.7 fL (9.4-12.4); Monocytes Absolute Auto 0.7 X10*3/uL (0.1-1.2); Monocytes Percent Auto 6.1 % (2-11); Neutrophils Absolute Auto 8.4 X10*3/uL (2.0-8.3); Neutrophils Percent Auto 76.2 % (45-73); Platelet Count 127 X10*3/uL (160-400); Red Blood Count 3.64 X10*6/uL (4.60-5.80); Red Cell Distribution Width 12.1 % (11.0-16.0); White Blood Count 11.1 X10*3/uL (4.8-10.8)
[2021-04-24 07:57] LABS: Anion Gap 10 (12-20); Blood Urea Nitrogen 32 mg/dL (9-16); Carbon Dioxide 22 mmol/L (22-29); Chloride 108 mmol/L (96-108); Estimated Glomerular Filt Rate 59; Glucose Random 78 mg/dL (60-115); Potassium 4.4 mmol/L (3.3-5.1); Sodium 136 mmol/L (135-145)
[2021-04-24 08:08] LABS: Calcium 8.6 mg/dL (8.4-10.2)
--- NOTE | 2021-04-24 08:14 | PHA.MEDREC ---
Pharmacy Consult ? Medication Reconciliation Pharmacy has completed the medication reconciliation There are no remarkable issues for provider's attention. Maureen Colin, IanD
--- NOTE | 2021-04-24 08:20 | PC.NURSE ---
pt refused breakfast. pt is a/o x 3 no sob/davian noted skin pink warm dry speaks in full sentences.
[2021-04-24 08:31] LABS: Alanine Aminotransferase 36 U/L (0-40); Albumin Level 2.7 g/dL (3.5-5.0); Alkaline Phosphatase 85 U/L (39-117); Aspartate Amino Transferase 36 U/L (5-37); Bilirubin Direct 0.5 mg/dL (0.0-0.5); Bilirubin Total 0.8 mg/dL (0.0-1.0); Magnesium 1.8 mg/dL (1.6-2.6); Total Protein 4.5 g/dL (6.5-8.0)
--- NOTE | 2021-04-24 08:34 | PC.NURSE ---
per dr. gia weinberg, abiraterone can be held for a few days but the prednisone needs to be continued. valentin ([facility] pharmacist) aware.
--- NOTE | 2021-04-24 08:42 | HE.PHANOTE ---
I contacted the [facility] to see if a non-formulary medication Abiraterone could be brought in. Dr. Martinez who is treating him at the [facility] said the medication could be held while the patient is admitted but continue the prednisone. Maureen Colin, IanD
[2021-04-24] MEDS: 0.9 % Sodium Chloride Flush 3 ML SYRINGE IVFLUSH ×2 (11:22→16:41)
[2021-04-24] MEDS: predniSONE 5 MG TABLET PO ×2 (12:02→21:15)
[2021-04-24] MEDS: traMADoL HCL 50 MG TABLET 100 MG PO ×3 (12:02→21:15)
[2021-04-24] MEDS: polyethylene glycoL 3350 17 GM POWD.PACK PO ×2 (12:03→21:15)
[2021-04-24] MEDS: PARoxetine HCL 10 MG TABLET 15 MG PO (12:03)
--- NOTE | 2021-04-24 13:48 | PC.NURSE ---
pt refused lunch stating i wlll eat [facility] . aware
--- NOTE | 2021-04-24 13:51 | PC.NURSE ---
pt daughter manish is at bed
--- NOTE | 2021-04-24 13:52 | PC.NURSE ---
pt's daughter manish is at bedside.
--- NOTE | 2021-04-24 15:09 | PC.NURSE ---
pt's daughter manish ([phone]) plz for any questions or concerns.
--- NOTE | 2021-04-24 16:13 | HO.PM.IMPN ---
Subjective Subjective Date of Service: 04/24/21 Interval History: philip , uti Physical Exam Vital Signs: Vital Signs: Last Vital Signs Temp 98.6 F 04/24/21 13:49 Pulse 75 04/24/21 15:36 Resp 18 04/24/21 15:36 BP 106/56 L 04/24/21 15:36 Pulse Ox 99 04/24/21 13:49 Body Mass Index 23.8 Physical exam: Cvs: [id number], [id number] , no murmur res: clear to auscultation ,no rhonchii or wheezing abd: no rebound or guarding ,nt, bs present. ext pulses present , no cyanosis neuro: awake , alert, nonfocal. Objective Data Active Medications Acetaminophen (Acetaminophen 325 Mg Tablet) 650 mg PO Q6H PRN PRN Reason: Pain, Mild (Pain Scale 1-3) Artificial Tears (Artificial Tears 15 Ml Drops) 1 drop EYE-BOTH DAILY [facility] Docusate Sodium (Docusate Sodium 100 Mg Capsule) 100 mg PO DAILY PRN PRN Reason: Constipation Heparin Sodium (Porcine) (Heparin Sodium,Porcine 5,000 Unit/Ml Vial) 5,000 unit SUBCUT Q12H [facility] Last Admin: 04/24/21 06:17 Dose: 5,000 unit Documented by: DEJAH Ceftriaxone Sodium 1 gm/ (Sodium Chloride) 50 mls @ 100 mls/hr IV Q24H [facility] Levothyroxine Sodium (Levothyroxine Sodium 25 Mcg Tablet) 75 mcg PO DAILY@0600 [facility] Last Admin: 04/24/21 06:14 Dose: 75 mcg Documented by: DEJAH Melatonin (Melatonin 3 Mg Tablet) 3 mg PO BEDTIME [facility] Last Admin: 04/24/21 06:09 Dose: Not Given Documented by: DEJAH Non-Admin Reason: Patient Asleep Ondansetron HCl (Ondansetron Hcl 4 Mg/2 Ml Vial) 4 mg IVPUSH Q8H PRN PRN Reason: Nausea and Vomiting Oxybutynin Chloride (Oxybutynin Chloride Er 5 Mg Tab.Er.24) 10 mg PO DAILY [facility] Last Admin: 04/24/21 12:01 Dose: 10 mg Documented by: MARLINE Paroxetine HCl (Paroxetine Hcl 10 Mg Tablet) 15 mg PO DAILY [facility] Last Admin: 04/24/21 12:03 Dose: 15 mg Documented by: MARLINE Polyethylene Glycol (Polyethylene Glycol 3350 17 Gm Powd.Pack) 17 gm PO BID [facility] Last Admin: 04/24/21 12:03 Dose: 17 gm Documented by: MARLINE Prednisone (Prednisone 5 Mg Tablet) 5 mg PO BID [facility] Last Admin: 04/24/21 12:02 Dose: 5 mg Documented by: MARLINE Sodium Chloride (0.9 % Sodium Chloride Flush 3 Ml Syringe) 3 ml IVFLUSH QSHIFT [facility] Last Admin: 04/24/21 11:22 Dose: 3 ml Documented by: MARLINE Tramadol HCl (Tramadol Hcl 50 Mg Tablet) 100 mg PO TID [facility] Last Admin: 04/24/21 15:34 Dose: 100 mg Documented by: SATYA Trazodone HCl (Trazodone Hcl 50 Mg Tablet) 50 mg PO BEDTIME [facility] Last Admin: 04/24/21 02:20 Dose: 50 mg Documented by: DEJAH Labs CBC & Chem 7: 04/24/21 07:13 04/24/21 07:13 Labs: Laboratory Results - last 24 hr 04/23/21 04/23/21 04/23/21 19:23 19:23 19:23 MCV 95.8 MCH 32.5 MCHC 33.9 RDW 12.0 Plt Count 219 MPV 11.2 Immature Gran % (Auto) 0.5 H Neut % (Auto) 85.6 H Lymph % (Auto) 7.8 L Bowman % (Auto) 5.8 Eos % (Auto) 0.1 Baso % (Auto) 0.2 Lymph # (Auto) 1.7 Bowman # (Auto) 1.3 H Eos # (Auto) 0.0 Baso # (Auto) 0.0 Abs Immat Gran (auto) 0.12 H Absolute Neuts (auto) 19.0 H Absolute Nucleated RBC 0.000 Nucleated RBC % (auto) 0.0 PT 10.7 INR 0.9 Anion Gap 19 Estim Creat Clear Calc 40.5 Estimated GFR 42 Random Glucose 121 H Lactic Acid Lactic Acid Fup @ 2Hr Calcium 9.7 Magnesium 1.9 Total Bilirubin 1.1 H Direct Bilirubin AST 37 D ALT 48 H Alkaline Phosphatase 109 Total Protein 6.3 L Albumin 3.4 L Lipase 7 L Urine Color Urine Appearance Urine pH Ur Specific Douglas Urine Protein Urine Glucose (UA) Urine Ketones Urine Blood Urine Nitrite Ur Leukocyte Esterase Urine RBC Urine WBC Ur Squamous Epith Cells Urine Bacteria Hyaline Casts Granular Casts Urine Mucus COVID-19 ([facility]) COVID-19 Clin Com 04/23/21 04/23/21 04/23/21 19:23 19:23 22:00 MCV MCH MCHC RDW Plt Count MPV Immature Gran % (Auto) Neut % (Auto) Lymph % (Auto) Bowman % (Auto) Eos % (Auto) Baso % (Auto) Lymph # (Auto) Bowman # (Auto) Eos # (Auto) Baso # (Auto) Abs Immat Gran (auto) Absolute Neuts (auto) Absolute Nucleated RBC Nucleated RBC % (auto) PT INR Anion Gap Estim Creat Clear Calc Estimated GFR Random Glucose Lactic Acid 3.9 H* Lactic Acid Fup @ 2Hr Calcium Magnesium Total Bilirubin Direct Bilirubin AST ALT Alkaline Phosphatase Total Protein Albumin Lipase Urine Color YELLOW Urine Appearance HAZY Urine pH 6.0 Ur Specific Douglas >= 1.030 H Urine Protein 1+ H Urine Glucose (UA) NEG Urine Ketones NEG Urine Blood 1+ H Urine Nitrite POS H Ur Leukocyte Esterase TRACE H Urine RBC 1-4 Urine WBC 1-4 Ur Squamous Epith Cells 1+ Urine Bacteria 3+ Hyaline Casts 1-4 Granular Casts 10-14 Urine Mucus 2+ COVID-19 ([facility]LENA) Negative COVID-19 Clin Com See Note 04/24/21 04/24/21 04/24/21 00:26 07:13 07:13 MCV 95.9 MCH 32.1 MCHC 33.5 RDW 12.1 Plt Count 127 L D MPV 10.7 Immature Gran % (Auto) 0.5 H Neut % (Auto) 76.2 H Lymph % (Auto) 16.5 L Bowman % (Auto) 6.1 Eos % (Auto) 0.5 Baso % (Auto) 0.2 Lymph # (Auto) 1.8 Bowman # (Auto) 0.7 Eos # (Auto) 0.1 Baso # (Auto) 0.0 Abs Immat Gran (auto) 0.05 H Absolute Neuts (auto) 8.4 H Absolute Nucleated RBC 0.000 Nucleated RBC % (auto) 0.0 PT INR Anion Gap 10 L Estim Creat Clear Calc 54.0 Estimated GFR 59 Random Glucose 78 D Lactic Acid Lactic Acid Fup @ 2Hr 1.7 Calcium 8.6 D Magnesium 1.8 Total Bilirubin 0.8 Direct Bilirubin 0.5 AST 36 ALT 36 Alkaline Phosphatase 85 D Total Protein 4.5 L D Albumin 2.7 L D Lipase Urine Color Urine Appearance Urine pH Ur Specific Douglas Urine Protein Urine Glucose (UA) Urine Ketones Urine Blood Urine Nitrite Ur Leukocyte Esterase Urine RBC Urine WBC Ur Squamous Epith Cells Urine Bacteria Hyaline Casts Granular Casts Urine Mucus COVID-19 ([facility]) COVID-19 Clin Com Microbiology Microbiology Results: Microbiology 04/23/21 22:10 Urine Culture - Preliminary Urine clean catch - Urine thomson top Culture too young to evaluate. Assessment and Plan (1) UTI (urinary tract infection): Status: Acute Assessment and Plan: 80-year-old male past medical history of hypothyroidism, hypertension, anxiety and depression as well as PTSD and BPH presents to the hospital after vomiting episode found to have UTI 1. vomiting - unclear etiology - CT abdomen negative - no recurrence while in the ED - will monitor - supportive measures with antiemetic 2.sepsis / UTI - has leukocytosis, lactic acidosis and positive UA - will start him on IV antibiotic - follow cultures 3. PHILIP: improving - most likely secondary to dehydration will stop IV fluids diet - follow BMP 4. lactic acidosis - most likely secondary to dehydration - resolved with IV fluids, resolved 5. hypertension - stable - will hold lisinopril in the setting of PHILIP - resume lisinopril once patient's kidney function is at baseline 6. hypothyroidism - continue levothyroxine Quality Stroke Does the patient have a stroke diagnosis?: No VTE Prior VTE?: No VTE Risk Level:: Medical - moderate - high VTE Device Contraindication: Treatment Not Indicated VTE Drug Contraindication: N/A - Med Ordered
[2021-04-24] MEDS: cefTRIAXone sodium 1 GM in 0.9 % Sodium Chloride 50 ML IV (21:14)
[2021-04-24] MEDS: Melatonin 3 MG TABLET PO (21:16)
[2021-04-25] VITALS: BP 97/44; PULSE 94; RESP 16; TEMP 36.9; O2SAT 95
[2021-04-25 04:00] VITALS: BP 92/54; PULSE 98; RESP 16; TEMP 36.4; O2SAT 96
[2021-04-25] MEDS: Levothyroxine Sodium 25 MCG TABLET 75 MCG PO (05:38)
[2021-04-25] MEDS: Heparin Sodium,Porcine 5,000 UNIT/ML VIAL 5000 UNIT SUBCUT (05:38)
[2021-04-25 07:08] LABS: Anion Gap 13 (12-20); Blood Urea Nitrogen 27 mg/dL (9-16); Calcium 8.9 mg/dL (8.4-10.2); Carbon Dioxide 23 mmol/L (22-29); Chloride 106 mmol/L (96-108); Creatinine Clr Calc Pharmacy 68.2; Estimated Glomerular Filt Rate > 60; Glucose Random 86 mg/dL (60-115); Potassium 4.9 mmol/L (3.3-5.1); Sodium 137 mmol/L (135-145)
[2021-04-25 08:00] VITALS: BP 114/61; PULSE 91; RESP 20; TEMP 35.9; O2SAT 97
[2021-04-25] MEDS: predniSONE 5 MG TABLET PO (08:18)
[2021-04-25] MEDS: PARoxetine HCL 10 MG TABLET 15 MG PO (08:18)
[2021-04-25] MEDS: traMADoL HCL 50 MG TABLET 100 MG PO (08:18)
[2021-04-25] MEDS: 0.9 % Sodium Chloride Flush 3 ML SYRINGE IVFLUSH (08:19)
--- NOTE | 2021-04-25 09:17 | PC.NURSE ---
Skin assessment completed today. Patient has incontinent associated dermatitis. EPC cream applied for protection. Patients knees are together causing blanchable redness, a pillow was placed between his knees. No other skin issues noted.
[2021-04-25 11:47] VITALS: BP 137/64; PULSE 99; RESP 18; TEMP 36; O2SAT 98
--- NOTE | 2021-04-25 11:52 | MHC.CM.PN ---
PATIENT IS IN FROM [address] [facility]. PLAN IS FOR PATIENT TO RETURN TODAY ON PO CEFTIN BID (250 MG) INFO RELAYED TO BARBER INSTRUCTOR, JODY. ISBELL AND UNIT AWARE OF PLAN. [facility] TO TRANSPORT.
--- NOTE | 2021-04-25 12:22 | MHC.CM.PN ---
HCP ROULA ([phone]) AWARE OF RETURN TO [facility] TODAY. PLAN IS FOR 1330 TRANSPORT VIA [facility]. IMM 04/25 IN CHART AND ORIGINAL TO RETURN TO FACILITY WITH PATIENT PER ROULA.
--- NOTE | 2021-04-25 13:30 | PM.DS ---
DS: Providers Provider Date of Service: 04/25/21 Date of admission: 04/24/21 00:00 Date of discharge: 04/25/21 Primary care physician: Unknown Physician DS: Diagnosis Discharge Diagnosis (1) UTI (urinary tract infection): Status: Acute DS: Summary Hospital Course Hospital Course: 80-year-old male with past medical history of hypothyroidism, dementia, BPH, PTSD, anxiety and alcohol dependence who presents to the hospital with complaints of vomiting.? Patient is agitated, and on cooperating but reports that his doctor sent him here because he was worried about him and hot wanted him to have checked out.? According to the report from ED physician patient had projectile vomiting and therefore sent to the ED for further evaluation.? Patient otherwise denies any headache, change in vision, no abdominal pain chest pain, no palpitations, no diarrhea constipation, no urinary symptoms and no lower extremity edema. ?Patient found to have a temp of 98.2?, heart rate of 133, respiratory rate of 16, blood pressure 151/68, satting 96% on room air.? Currently blood pressure has improved to 1 12/68. Labs are significant for WBC count of 22.2, lactic acid of 3.9, BUN of 35 with a creatinine of 1.6 with a baseline around 0.9, UA positive for leukocyte esterase and nitrites. Abdominal CT shows no small-bowel obstruction, nonspecific abnormalities at the lung bases which could represent chronic changes and multiple age indeterminate lumbar compression fractures. Past medical history is obtained from EMR. Hospital course: Patient has UTI and came with nausea vomiting and PHILIP. Patient was hydrated as well as workup for nausea vomiting was also done including CT head which seems to be fine UTI was patient growing Streptococcus species previously also grew Staphylococcus species which is sensitive to oxacillin we will give Augmentin upon discharge. Further management outpatient as per PCP. Final urine culture chill and sensitivity still pending. We will need for the rehab in in case sensitivity comes out to be different than oxacillin. PHILIP also improved with hydration. Above was discussed with Dr. Martinez also yesterday. Further workup for nausea vomiting if recurrent as per PCP in rehab. Above management discussed with the patient in detail length she understand and in agreement with the above plan, time spent 50 minutes and 50% time spent on counseling. Significant findings: As above. Procedures performed: None. Treatment and response: As above. Complications: None. Time Spent with Patient Time attestation: Total time spent providing and/or coordinating discharge services: Discharge coordination time: Greater than 30 minutes Quality: Stroke Does the patient have a stroke diagnosis?: No Physical Exam Vital Signs: Vital Signs: Last Vital Signs Temp 96.8 F 04/25/21 11:47 Pulse 99 04/25/21 11:47 Resp 18 04/25/21 11:47 BP 137/64 04/25/21 11:47 Pulse Ox 98 04/25/21 11:47 Body Mass Index 23.8 Physical exam: Appearance: Alert.? Oriented X3.? not in distress.? Eyes: Pupils equal, round and reactive to light.? Sclera nonicteric.? ENT: Pharynx normal.? Moist mucous membranes. cvs: rrr, [id number] , no murmur res: clear to auscultation ,no rhonchii or wheezing abd: no rebound or guarding ,nt, bs present. ext pulses present , no cyanosis ,Gait well balanced well coordinated. neuro: axo3 , nonfocal. DS: Data Data Completed and Pending Labs on day of discharge: Laboratory Results - last 24 hr 04/25/21 06:17 Sodium 137 Potassium 4.9 Chloride 106 Carbon Dioxide 23 Anion Gap 13 BUN 27 H Creatinine 0.95 Estim Creat Clear Calc 68.2 Estimated GFR > 60 Random Glucose 86 Calcium 8.9 Preliminary micro results at discharge 04/23/21 22:10 Urine Culture - Preliminary Urine clean catch - Urine thomson top Staphylococcus species 04/23/21 20:48 Blood Culture - Preliminary Blood - Venous No growth after 24 hours. 04/23/21 20:51 Blood Culture - Preliminary Blood - Venous No growth after 24 hours. Discharge Plan Discharge Patient Disposition: Xfer SNF Discharge Diagnosis: uti,philip Referrals: [facility] [place] [Outside] - 1 Week Physician,Unknown [Primary Care Provider] - 1 Week Discharge Medications: New amoxicillin-pot clavulanate [Augmentin] 500-125 mg tablet 1 tab PO BID Qty: 14 RF: 0 Continued paroxetine HCl 10 mg Tablet 15 mg PO DAILY RF: 0 trazodone 50 mg Tablet 50 mg PO BEDTIME RF: 0 oxybutynin chloride 10 mg Tablet Extended Release 24hr 10 mg PO DAILY RF: 0 prednisone 5 mg Tablet 5 mg PO BID RF: 0 melatonin 3 mg Tablet 3 mg PO BEDTIME RF: 0 levothyroxine 75 mcg Tablet 75 mcg PO DAILY@0600 RF: 0 lisinopril 2.5 mg Tablet 2.5 mg PO DAILY RF: 0 cholecalciferol (vitamin D3) 25 mcg (1,000 unit) Tablet 50 mcg PO DAILY RF: 0 abiraterone 500 mg Tablet 1,000 mg PO DAILY@0600 RF: 0 carboxymethylcellulose sodium 1 % Drops 1 drp OPHTHALMIC (EYE) DAILY RF: 0 tramadol 100 mg Tablet 100 mg PO Q8H RF: 0 acetaminophen 325 mg Tablet 650 mg PO Q4H PRN (Reason: pain/fever) RF: 0 fluticasone propionate 50 mcg/actuation [place],Suspension 1 spray INTRANASAL BID PRN (Reason: Allergy Symptoms) RF: 0 Discharge Orders: Discharge Order (Routine); Ordered 04/25/21 Ordered By: Devorah Rubin Diet: advance to usual diet Activity on Discharge: As tolerated Stand Alone Forms: Patient Portal Discharge page Care Plan Goals: Patient was treated with UTI and PHILIP seems to be improving, completed antibiotic course. Health Concerns: As above. Plan of Treatment: As above. Assessment: As above. Discharge Date/Time: 04/25/21 14:00
[2021-04-25] MEDS: Amoxicillin/Potassium Clav 500 MG TABLET PO (13:45)
--- NOTE | 2021-04-25 13:58 | MHC.CM.PN ---
PATIENT IS UNABLE TO SECURE [facility] SERVICES. HIS INSURANCE PLAN REQUIRES A VERIFIED PCP. SURGICAL PA MADE AWARE. PATIENT REFUSES REHAB PLACEMENT PLAN IS FOR PATIENT TO WORK WITH P.T. ON WEDNESDAY IN HOPES OF [facility]IGATING STA[facility]. CASE MANAGEMENT FOLLOWING.
== END 2021-04-25 14:00 | disposition skilled nursing facility (03) | DRG 872 ==
LOC: HO.ED 04-24 00:03 → HO.EDOVER 04-24 00:07 → HO.S3 04-24 15:16
PROVIDERS: Admitting Provider Internal Medicine; Emergency Provider Internal Medicine; PCP Internal Medicine Medical Oncology; Visit Provider Internal Medicine
DX: A41.9 Sepsis, unspecified organism (principal); E87.2 Acidosis; N39.0 Urinary tract infection, site not specified; N17.9 Acute kidney failure, unspecified; F03.90 Unspecified dementia, unspecified severity, without behavioral disturbance, psychotic disturbance, mood disturbance, and anxiety; I10 Essential (primary) hypertension; E03.9 Hypothyroidism, unspecified; N40.0 Benign prostatic hyperplasia without lower urinary tract symptoms; B95.8 Unspecified staphylococcus as the cause of diseases classified elsewhere; F43.10 Post-traumatic stress disorder, unspecified; Z20.822 Contact with and (suspected) exposure to COVID-19; Z79.51 Long term (current) use of inhaled steroids; Z79.52 Long term (current) use of systemic steroids; Z79.890 Hormone replacement therapy; Z79.891 Long term (current) use of opiate analgesic; Z79.899 Other long term (current) drug therapy
CPT/HCPCS: 36415; 70450; 71045; 74176; 80048; 80053; 80076; 81001; 83605; 83690; 83735; 85025; 85610; 87040; 87086; 87088; 87186; 87635; 93005; 96361; 96365; 96375; 99285; J0696; J2270; J2405

== ENCOUNTER 2021-04-28 15:31 | Outpatient (REF) | payer MEDICARE, SELFPAY ==
[2021-04-28 16:02] LABS: Appearance Urine HAZY; Color Urine YELLOW; Glucose Urine UA NEG (NEG); Leukocyte Esterase Urine NEG (NEG); Nitrite Urine NEG (NEG); PH 7.5 (5.0-8.0); Specific Gravity - Urine 1.015 (1.005-1.025); Urine Blood NEG (NEG); Urine Ketones NEG (NEG); Urine Protein NEG (NEG-TRACE)
== END 2021-04-28 15:32 | disposition home or self-care (01) ==
LOC: HO.HSH3E 15:31
PROVIDERS: Visit Provider Internal Medicine Medical Oncology
DX: Z11.2 Encounter for screening for other bacterial diseases (principal)
CPT/HCPCS: 81003

== ENCOUNTER 2021-05-07 18:49 | Inpatient (IN) | payer MEDICARE, SELFPAY ==
--- NOTE | ~2021-05-07 | CT_ITS ---
EXAMINATION: CT ABDOMEN AND PELVIS WITHOUT CONTRAST CLINICAL INFORMATION: Abdominal pain COMPARISON: 04/23/2021 TECHNIQUE: Multidetector volumetric imaging was performed from the superior aspect of the liver through the pubic symphysis. Sagittal and coronal reformatted images were obtained on the technologist's workstation. This CT examination was performed using dose optimization techniques as appropriate, variously including the following: *Automated exposure control *Adjustment of mA and/or kV according to patient size (this includes techniques or standardized protocols for targeted exams where dose is matched to indication/reason for exam; i.e. extremities or head) *Use of iterative reconstruction technique DLP: 616 mGy-cm FINDINGS: LUNG BASES: Again seen are chronic changes at the lung bases most likely secondary to emphysema and interstitial lung disease with some fibrosis. No interval change when compared to the prior study. Extensive coronary disease is present. The heart size is normal. A small pericardial effusion is present and unchanged. LIVER, GALLBLADDER, AND BILIARY TREE: Portal venous gas is present in the portal tributaries in the liver as well as in the main portal vein and other portal radicals throughout the abdomen. Gas is seen in some perisplenic veins as well as some of the portal radicals in the wall of the stomach. The gallbladder contains some layering high density material but is otherwise unremarkable with no evidence of discrete radiopaque gallstones, gallbladder wall thickening, or obvious pericholecystic inflammatory changes. PANCREAS: Unremarkable. SPLEEN: Unremarkable. ADRENAL GLANDS: Unremarkable. KIDNEYS AND URETERS: The kidneys are normal in size, shape, and attenuation. No hydronephrosis, hydroureter, or collecting system calculi seen. Multiple calcifications seen are felt to be vascular. No perinephric stranding. BLADDER: Unremarkable. GASTROINTESTINAL TRACT: The stomach is distended and there is portal venous gas seen in the wall of the fundus, felt to be within vascular branches. There is no pneumatosis, however, within the wall of the descending colon (for example 3:58). There is a small amount of inflammatory change around this with thickening of the lateral conal fascia and a tiny amount of fluid. In terms of using a cause for the portal venous gas, this appears to be the most obvious source. The small bowel is unremarkable. ABDOMINAL WALL: No significant hernia is appreciated. LYMPH NODES: No retroperitoneal lymphadenopathy. VASCULAR: Severe aorto iliac vascular disease is present with stenotic disease involving the celiac and SMA. Severe atherosclerotic changes also present in both renal arteries. PELVIC VISCERA: Prostate and seminal vesicles do not appear to be present. OSSEOUS STRUCTURES: Severe degenerative changes present with multiple compression fractures involving L2 L4 and L5. Screws are present in the left hip. CT/CT abdomen pelvis wo con IMPRESSION: 1. Portal venous gas is present and the most obvious cause appears to be the descending colon which demonstrates pneumatosis (air within its wall). The stomach is distended and portal venous radicals can be seen extending into the gastric wall filling small branching vessels. 2. Other incidental findings include severe vascular disease which could even be causing mesenteric ischemia, prostatectomy, severe degenerative changes and compression fractures and COPD/interstitial lung disease. This critical result was discussed with Dr Dhillon at 12:15 AM on 05/08/2021 and it was ascertained that the content and urgency of the report was understood at the time of direct communication.
--- NOTE | ~2021-05-07 | XR_ITS ---
EXAMINATION: XR CHEST CLINICAL INFORMATION: Vomiting. COMPARISON: None TECHNIQUE: Frontal view of the chest was obtained. FINDINGS: The lungs are well-expanded and clear of acute process. There are 2 small pulmonary nodules in the right upper lobe measuring 5 mm and 3 mm. The heart size and pulmonary vascularity is normal. There are linear catheter overlying the left upper chest question central line. No gross bony abnormality seen. XR/XR chest 1V IMPRESSION: Unremarkable chest exam. There is a catheter overlying the left upper chest question central venous catheter or an artifact.
--- NOTE | 2021-05-07 19:04 | ECG_ITS ---
Test Reason : NAUSEA/VOMITING Blood Pressure : / mmHG Vent. Rate : 146 BPM Atrial Rate : 153 BPM P-R Int : 000 ms QRS Dur : 084 ms QT Int : 300 ms P-R-T Axes : 000 -49 069 degrees QTc Int : 467 ms Poor data quality, interpretation may be adversely affected Supraventricular tachycardia Low voltage QRS Left anterior fascicular block Abnormal ECG When compared with ECG of 23-APR-2021 20:05, No significant change was found Referred By: Narinder Honeycutt Electronically Signed By:DIRK YANEZ
--- NOTE | 2021-05-07 19:06 | ED.NAVMDI ---
HPI - Nausea/Vomiting/Diarrhea General Chief complaint: Nausea/Vomiting/Diarrhea Stated complaint: n/v - low BP Time Seen by Provider: 05/07/21 19:03 Source: patient and EMS Mode of arrival: EMS Limitations: no limitations History of Present Illness HPI Narrative: 80-year-old male came in by EMS for evaluation of hypotension after having 1 time coffee-ground vomiting. Recent hospitalization for vomiting with Hector and UTI patient still on antibiotic for his UTI. Patient found to be hypotensive after having 1 time coffee-ground vomiting, patient declined chest pain, no abdominal pain, no diarrhea. Patient now complained of no symptoms except feeling thirsty. Related Data Home Medications Medication Instructions Recorded Confirmed acetaminophen 325 mg tablet 650 mg PO Q4H PRN 04/24/21 05/07/21 carboxymethylcellulose sodium 1 % 1 drp OPHTHALMIC (EYE) DAILY 04/24/21 05/07/21 eye drops cholecalciferol (vitamin D3) 25 50 mcg PO DAILY 04/24/21 05/07/21 mcg (1,000 unit) tablet fluticasone propionate 50 1 spray INTRANASAL BID PRN 04/24/21 05/07/21 mcg/actuation nasal spray,suspension levothyroxine 75 mcg tablet 75 mcg PO DAILY@0600 04/24/21 05/07/21 lisinopril 2.5 mg tablet 2.5 mg PO DAILY 04/24/21 05/07/21 melatonin 3 mg tablet 3 mg PO BEDTIME 04/24/21 05/07/21 oxybutynin chloride 10 mg 10 mg PO DAILY 04/24/21 05/07/21 tablet,extended release 24 hr paroxetine HCl 10 mg tablet 15 mg PO BEDTIME 04/24/21 05/07/21 prednisone 5 mg tablet 5 mg PO BID 04/24/21 05/07/21 tramadol 100 mg tablet 100 mg PO Q8H 04/24/21 05/07/21 trazodone 50 mg tablet 50 mg PO BEDTIME 04/24/21 05/07/21 Lactobacillus acidophilus 2,000 mmu cells PO BID 05/07/21 05/07/21 megestrol 400 mg/10 mL (10 mL) 400 mg PO BID 05/07/21 05/07/21 oral suspension Allergies Allergy/AdvReac Type Severity Reaction Status Date / Time No Known Allergies Allergy Verified 04/23/21 19:00 Review of Systems Review of Systems: All other systems are reviewed and are negative Constitutional: Reports as per HPI and Reports no additional constitutional complaints Eyes: Reports as per HPI and Reports no additional eye complaints Reports system reviewed and no additional complaints, except as documented Cardiovascular: Reports as per HPI and Reports no additional cardiovascular complaints Respiratory: Reports as per HPI and Reports no additional respiratory complaints Gastrointestinal: Reports as per HPI and Reports no additional gastrointestinal complaints Genitourinary: Reports no additional female genitourinary complaints Musculoskeletal: Reports no additional musculoskeletal complaints Skin/Breast: Reports system reviewed and no additional complaints, except as docu Psychiatric: Reports no additional psychiatric complaints Endocrine: Reports no additional endocrine complaints Hematologic/Lymphatic: Reports no additional hematologic/lymphatic complaints Allergic/Immunologic: Reports no additional allergic/immunologic complaints Reports system reviewed and no additional complaints, except as documented and Reports Abnormal speech present [facility] Past Medical History Medical History Alcohol dependence Anxiety Benign prostatic hyperplasia Dementia Depression Hypothyroidism Obesity Prostate cancer Psoriasis PTSD (post-traumatic stress disorder) Urinary incontinence Social History Social History Household Members: Other Household Members 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 Blood pressure normal. Heart rate normal. Respiration rate normal. Temperature normal. Oxygen saturation normal. Appearance: Alert. Oriented X3. No acute distress. Head: Normal external exam. Normocephalic. Atraumatic. No Figueredo signs noted. No raccoon eyes noted Eyes: PERRLA. EOMI. Conjunctiva and sclera normal. Eyelids normal. ENT: TM's Normal. Pharynx normal. Uvula midline. Dry mucous membranes. No trismus noted. No drooling noted. No muffled voice noted. Neck: Normal inspection. Neck supple. FROM. No adenopathy. Thyroid Normal. No meningeal signs. No neck mass noted. CVS: Normal heart rate and rhythm. Heart sound normal. No murmurs noted. Pulses normal throughout. Respiratory: No respiratory distress. Painless inspiration. Breath sounds normal. No wheezes/rales/rhonchi noted. Chest nontender. No accessory muscle usage noted or decreased air movement noted. Abdomen: Soft and nontender. Bowel sounds normal in all 4 quadrants. No distention noted. No organomegaly noted. No visible injury noted. Back: No CVA tenderness. Full range of motion noted. Skin: Skin warm and dry. Normal skin color. Normal skin turgor. No rashes/lesions/lacerations noted. Extremities: No lower extremity edema. Extremities exhibit normal range of motion. Extremities nontender. Neuro: Oriented X 3 (time, person, and event) Cranial nerve exam: II-XII are grossly intact No motor deficit. No sensory deficit. Reflexes normal. Course Course Course Narrative: Assessment and plan. 80-year-old male from snf came in for evaluation of hypotension after coffee grounded vomiting 1 time today, no more vomiting in the emergency department, patient has leukocytosis, with elevation of lactic acid. Unable to obtain UA patient adamantly refusing catheterization because usually he bleed after catheterization, patient wear diaper, [place] catheter was tried because penis was too retracted unable to insert it. Patient's blood pressure now with fluid is better, still tachycardic multiple attempts to obtain EKG shows artifact likely the underlying rhythm is normal sinus rhythm. Will admit for hydration and monitoring blood pressure. Hopefully will be able to obtain urine at some point but patient had antibiotic for UTI recently. Has no urinary symptoms. MDM - Nausea/Vomiting/Diarrhea Lab Data Attestation: I reviewed the patient's lab results. Result diagrams: 05/07/21 20:19 05/07/21 20:20 Labs: Lab Results 05/07/21 05/07/21 05/07/21 Range/Units 20:19 20:19 20:19 WBC 20.1 H (4.8-10.8) X10*3/uL RBC 4.80 D (4.60-5.80) X10*6/uL Hgb 15.6 D (14.0-18.0) g/dl Hct 46.3 D (42-52) % MCV 96.5 (80-98) fL MCH 32.5 (27.0-33.0) pg MCHC 33.7 (31.0-36.0) g/dl RDW 12.9 (11.0-16.0) % Plt Count 311 D (160-400) X10*3/uL MPV 9.9 (9.4-12.4) fL Immature Gran % (Auto) 1.0 H (0.0-0.4) % Neut % (Auto) 82.4 H (45-73) % Lymph % (Auto) 9.2 L (20-40) % [place] % (Auto) 7.3 (2-11) % Eos % (Auto) 0.0 (0-4) % Baso % (Auto) 0.1 (0-2) % Lymph # (Auto) 1.8 (1.2-4.9) X10*3/uL [place] # (Auto) 1.5 H (0.1-1.2) X10*3/uL Eos # (Auto) 0.0 (0.0-0.4) X10*3/uL Baso # (Auto) 0.0 (0.0-0.2) X10*3/uL Abs Immat Gran (auto) 0.20 H (0.00-0.03) X10*3/uL Absolute Neuts (auto) 16.5 H (2.0-8.3) X10*3/uL Absolute Nucleated RBC 0.000 (0.0-0.012) X10*3/uL Nucleated RBC % (auto) 0.0 (0.0-0.2) /100WBC PT 11.2 (9.9-13.0) SEC INR 1.0 (0.9-1.1) APTT 34.9 (24.1-38.0) SEC Sodium (135-145) mmol/L Potassium (3.3-5.1) mmol/L Chloride (96-108) mmol/L Carbon Dioxide (22-29) mmol/L Anion Gap (12-20) BUN (9-16) mg/dL Creatinine (0.5-1.4) mg/dL Estim Creat Clear Calc Estimated GFR Random Glucose (60-115) mg/dL Lactic Acid (0.5-2.0) mmol/L Calcium (8.4-10.2) mg/dL Total Bilirubin (0.0-1.0) mg/dL Direct Bilirubin (0.0-0.5) mg/dL AST (5-37) U/L ALT (0-40) U/L Alkaline Phosphatase (39-117) U/L Troponin I High Sens 33.5 (<3.5-35.0) ng/L B-Natriuretic Peptide 100 (<100) pg/mL Total Protein (6.5-8.0) g/dL Albumin (3.5-5.0) g/dL Lipase (8-78) U/L COVID-19 ([facility]LENA) (Negative) COVID-19 Clin Com 05/07/21 05/07/21 05/07/21 Range/Units 20:20 20:20 20:20 WBC (4.8-10.8) X10*3/uL RBC (4.60-5.80) X10*6/uL Hgb (14.0-18.0) g/dl Hct (42-52) % MCV (80-98) fL MCH (27.0-33.0) pg MCHC (31.0-36.0) g/dl RDW (11.0-16.0) % Plt Count (160-400) X10*3/uL MPV (9.4-12.4) fL Immature Gran % (Auto) (0.0-0.4) % Neut % (Auto) (45-73) % Lymph % (Auto) (20-40) % [place] % (Auto) (2-11) % Eos % (Auto) (0-4) % Baso % (Auto) (0-2) % Lymph # (Auto) (1.2-4.9) X10*3/uL [place] # (Auto) (0.1-1.2) X10*3/uL Eos # (Auto) (0.0-0.4) X10*3/uL Baso # (Auto) (0.0-0.2) X10*3/uL Abs Immat Gran (auto) (0.00-0.03) X10*3/uL Absolute Neuts (auto) (2.0-8.3) X10*3/uL Absolute Nucleated RBC (0.0-0.012) X10*3/uL Nucleated RBC % (auto) (0.0-0.2) /100WBC PT (9.9-13.0) SEC INR (0.9-1.1) APTT (24.1-38.0) SEC Sodium 138 (135-145) mmol/L Potassium 4.5 (3.3-5.1) mmol/L Chloride 107 (96-108) mmol/L Carbon Dioxide 19 L (22-29) mmol/L Anion Gap 17 (12-20) BUN 37 H (9-16) mg/dL Creatinine 1.30 (0.5-1.4) mg/dL Estim Creat Clear Calc 49.8 Estimated GFR 53 Random Glucose 123 H D (60-115) mg/dL Lactic Acid 4.2 H* (0.5-2.0) mmol/L Calcium 9.5 D (8.4-10.2) mg/dL Total Bilirubin 0.9 (0.0-1.0) mg/dL Direct Bilirubin 0.4 (0.0-0.5) mg/dL AST 24 (5-37) U/L ALT 80 H (0-40) U/L Alkaline Phosphatase 81 (39-117) U/L Troponin I High Sens (<3.5-35.0) ng/L B-Natriuretic Peptide (<100) pg/mL Total Protein 6.4 L D (6.5-8.0) g/dL Albumin 3.8 D (3.5-5.0) g/dL Lipase 4 L (8-78) U/L COVID-19 (SELENA) Negative (Negative) COVID-19 Clin Com See Note Imaging Data Chest x-ray: Radiologist's impression: Unremarkable chest exam. There is a catheter overlying the left upper chest question central venous catheter or an artifact. ECG Data Interpretation: Sinus tachycardia at 146 beats per minutes, with artifact, in adequate EKG. Discharge Plan Discharge Clinical Impression: Dehydration, Hematemesis Patient Disposition: Admitted As Inpatient
[2021-05-07 19:11] VITALS: BP 112/70; BP 94/46; PULSE 130; RESP 20; TEMP 36.9; O2SAT 94; BMI 24.3
[2021-05-07] MEDS: Pantoprazole Sodium 40 MG/10 ML VIAL IVPUSH (19:24)
--- NOTE | 2021-05-07 19:27 | PC.NURSE ---
MEDICATED PER MAR
[2021-05-07 20:29] LABS: MANUAL DIFF FLAG NO
[2021-05-07 20:33] LABS: Basophils Percent Auto 0.1 % (0-2); Hematocrit 46.3 % (42-52); Hemoglobin 15.6 g/dl (14.0-18.0); Lymphocytes Absolute Auto 1.8 X10*3/uL (1.2-4.9); Lymphocytes Percent Auto 9.2 % (20-40); Mean Corpuscular HGB Conc 33.7 g/dl (31.0-36.0); Mean Corpuscular Hemoglobin 32.5 pg (27.0-33.0); Mean Corpuscular Volume 96.5 fL (80-98); Mean Platelet Volume 9.9 fL (9.4-12.4); Monocytes Absolute Auto 1.5 X10*3/uL (0.1-1.2); Monocytes Percent Auto 7.3 % (2-11); Neutrophils Absolute Auto 16.5 X10*3/uL (2.0-8.3); Neutrophils Percent Auto 82.4 % (45-73); Platelet Count 311 X10*3/uL (160-400); Red Cell Distribution Width 12.9 % (11.0-16.0); White Blood Count 20.1 X10*3/uL (4.8-10.8)
--- NOTE | 2021-05-07 20:35 | PC.NURSE ---
RN IS AWARE THAT PATIENT REFUSED TO BE STRAIGHT CATHED
[2021-05-07 20:47] LABS: Alanine Aminotransferase 80 U/L (0-40); Albumin Level 3.8 g/dL (3.5-5.0); Alkaline Phosphatase 81 U/L (39-117); Anion Gap 17 (12-20); Aspartate Amino Transferase 24 U/L (5-37); Bilirubin Direct 0.4 mg/dL (0.0-0.5); Bilirubin Total 0.9 mg/dL (0.0-1.0); Blood Urea Nitrogen 37 mg/dL (9-16); Calcium 9.5 mg/dL (8.4-10.2); Carbon Dioxide 19 mmol/L (22-29); Chloride 107 mmol/L (96-108); Creatinine Clr Calc Pharmacy 49.8; Estimated Glomerular Filt Rate 53; Glucose Random 123 mg/dL (60-115); Lipase 4 U/L (8-78); Potassium 4.5 mmol/L (3.3-5.1); Sodium 138 mmol/L (135-145); Total Protein 6.4 g/dL (6.5-8.0)
[2021-05-07 20:52] LABS: COVID-19 Test Negative (Negative)
[2021-05-07 20:52] LABS: B Type Natriuretic Peptide 100 pg/mL (<100); Prothrombin Time 11.2 SEC (9.9-13.0); Troponin-I High Sensitivity 33.5 ng/L (<3.5-35.0)
[2021-05-07 20:54] LABS: Lactic Acid 4.2 mmol/L (0.5-2.0)
[2021-05-07 20:55] LABS: Partial Thromboplastin Time 34.9 SEC (24.1-38.0)
--- NOTE | 2021-05-07 21:14 | PHA.MEDREC ---
Pharmacy Consult ? Medication Reconciliation Pharmacy has completed the medication reconciliation.
[2021-05-07 21:36] VITALS: BP 110/66; PULSE 125; RESP 20; TEMP 37.1; O2SAT 96
--- NOTE | 2021-05-07 21:55 | PC.NURSE ---
attempted to get repeated ekg ,was unsuccessful ,because patient is too tremoures , aware
[2021-05-07 22:26] LABS: Reflex Lactate? Lactic Acid Added
--- NOTE | 2021-05-07 22:56 | P.HPHOSP_ITS ---
History of Present Illness Date of Service: 05/07/21 Chief Complaint: Coffee-ground emesis This is a 80-year-old male with past medical history of dementia, depression, hypothyroidism, prostate cancer, PTSD, urinary incontinence who presents to the hospital from care home after 1 episode of coffee-ground emesis. Patient is alert and oriented x3. He reports that he had 1 episode of vomiting this morning with no abdominal pain, with no previous similar episode, no chest pain, no palpitations, although reports that he was told his heart rate is in the 120s. Patient denies any diarrhea or constipation, no urinary symptoms and no lower extremity edema. He denies any chest pain, no shortness of breath, no headache, no change in vision, no numbness tingling or weakness. To the ED patient vitals are significant for a temp of 98.5, heart rate of 130, respiratory rate of 20, blood pressure of 94/46 that improved to 1 , satting 94% on room air Labs are significant for WBC count of 20, 37 with a creatinine of 1.30 with a baseline of 0.9, lactic acid of 4.2, ALT of 80, lipase of 4, Chest x-ray shows unremarkable chest exam. EKG shows supraventricular tachycardia with frequent and consecutive premature ventricular complexes Review of Systems Review of Systems: Yes all other systems are reviewed and are negative COUNT INCLUDES THE [facility] Medical History (Updated 05/07/21 @ 23:10 by Floyd Dhillon MD) Alcohol dependence Anxiety Benign prostatic hyperplasia Dementia Depression Hypothyroidism Obesity Prostate cancer Psoriasis PTSD (post-traumatic stress disorder) Urinary incontinence Pertinent family history: Patient denies any family history Surgical History (Updated 05/07/21 @ 23:05 by Floyd Dhillon MD) No significant past surgical history Social History Household Members: Other Household Members 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 Housing: [facility] Do you presently have visiting nurse or other home services: Yes Patient Tobacco Use Status: Former Tobacco user Advance Directives: No Advance Directives Information Provided: Yes service: Yes Current occupational status: disabled Meds Allergies Allergy/AdvReac Type Severity Reaction Status Date / Time No Known Allergies Allergy Verified 04/23/21 19:00 Active Medications: Current Medications Pharmacy Consult (Consult Rx Perform Med Rec) 1 each MISCELLANE ONCE PRN PRN Reason: Consult order Home Medications Medication Instructions Recorded Confirmed Last Taken Type acetaminophen 325 mg tablet 650 mg PO Q4H PRN 04/24/21 05/07/21 04/22/21 History carboxymethylcellulose sodium 1 % 1 drp OPHTHALMIC (EYE) DAILY 04/24/21 05/07/21 05/07/21 History eye drops cholecalciferol (vitamin D3) 25 50 mcg PO DAILY 04/24/21 05/07/21 05/07/21 History mcg (1,000 unit) tablet fluticasone propionate 50 1 spray INTRANASAL BID PRN 04/24/21 05/07/21 04/22/21 History mcg/actuation nasal spray,suspension levothyroxine 75 mcg tablet 75 mcg PO DAILY@0600 04/24/21 05/07/21 05/07/21 History lisinopril 2.5 mg tablet 2.5 mg PO DAILY 04/24/21 05/07/21 05/07/21 History melatonin 3 mg tablet 3 mg PO BEDTIME 04/24/21 05/07/21 05/06/21 History oxybutynin chloride 10 mg 10 mg PO DAILY 04/24/21 05/07/21 05/07/21 History tablet,extended release 24 hr paroxetine HCl 10 mg tablet 15 mg PO BEDTIME 04/24/21 05/07/21 05/06/21 History prednisone 5 mg tablet 5 mg PO BID 04/24/21 05/07/21 05/07/21 History tramadol 100 mg tablet 100 mg PO Q8H 04/24/21 05/07/21 05/07/21 History trazodone 50 mg tablet 50 mg PO BEDTIME 04/24/21 05/07/21 05/06/21 History Lactobacillus acidophilus 2,000 mmu cells PO BID 05/07/21 05/07/21 05/07/21 History megestrol 400 mg/10 mL (10 mL) 400 mg PO BID 05/07/21 05/07/21 05/07/21 History oral suspension Physical Exam Vital Signs and Narrative: Vital Signs: Last Vital Signs Temp 98.7 F 05/07/21 21:36 Pulse 125 H 05/07/21 21:36 Resp 20 05/07/21 21:36 BP 110/66 05/07/21 21:36 Pulse Ox 96 05/07/21 21:36 Body Mass Index 24.3 Const: General: cooperative and no acute distress Orientation/consciousness: patient oriented x3 Eyes: General: appearance normal, both eyes and all related structures Resp: Effort & Inspection: normal respiratory effort Auscultation: clear to auscultation bilaterally Cardio: Rate: regular rate Rhythm: regular rhythm GI: Other: Abdomen is tender in the left lower quadrant, some guarding with no rebound Palpation (GI): Soft to palpation Auscultation: normal bowel sounds Skin: General skin exam: no rashes or lesions noted Neuro: General: patient oriented x3 Cognition (Neuro): normal cognition Extrem: General: Yes normal to inspection and Yes no pedal edema Results Labs CBC and Chem 7: 05/07/21 20:19 05/07/21 20:20 Labs: Laboratory Results - last 24 hr 05/07/21 05/07/21 05/07/21 20:19 20:19 20:19 MCV 96.5 MCH 32.5 MCHC 33.7 RDW 12.9 Plt Count 311 D MPV 9.9 Immature Gran % (Auto) 1.0 H Neut % (Auto) 82.4 H Lymph % (Auto) 9.2 L [place] % (Auto) 7.3 Eos % (Auto) 0.0 Baso % (Auto) 0.1 Lymph # (Auto) 1.8 [place] # (Auto) 1.5 H Eos # (Auto) 0.0 Baso # (Auto) 0.0 Abs Immat Gran (auto) 0.20 H Absolute Neuts (auto) 16.5 H Absolute Nucleated RBC 0.000 Nucleated RBC % (auto) 0.0 PT 11.2 INR 1.0 APTT 34.9 Anion Gap Estim Creat Clear Calc Estimated GFR Random Glucose Lactic Acid Calcium Total Bilirubin Direct Bilirubin AST ALT Alkaline Phosphatase Troponin I High Sens 33.5 B-Natriuretic Peptide 100 Total Protein Albumin Lipase COVID-19 ([facility]) COVID-19 Clin Com 05/07/21 05/07/21 05/07/21 20:20 20:20 20:20 MCV MCH MCHC RDW Plt Count MPV Immature Gran % (Auto) Neut % (Auto) Lymph % (Auto) [place] % (Auto) Eos % (Auto) Baso % (Auto) Lymph # (Auto) [place] # (Auto) Eos # (Auto) Baso # (Auto) Abs Immat Gran (auto) Absolute Neuts (auto) Absolute Nucleated RBC Nucleated RBC % (auto) PT INR APTT Anion Gap 17 Estim Creat Clear Calc 49.8 Estimated GFR 53 Random Glucose 123 H D Lactic Acid 4.2 H* Calcium 9.5 D Total Bilirubin 0.9 Direct Bilirubin 0.4 AST 24 ALT 80 H Alkaline Phosphatase 81 Troponin I High Sens B-Natriuretic Peptide Total Protein 6.4 L D Albumin 3.8 D Lipase 4 L COVID-19 ([facility]LENA) Negative COVID-19 Clin Com See Note ECG Interpretation: Supraventricular tachycardia Imaging Radiologist's Impressions: Impressions Chest X-Ray 05/07/21 19:03 IMPRESSION: Unremarkable chest exam. There is a catheter overlying the left upper chest question central venous catheter or an artifact. Assessment and Plan (1) Coffee ground emesis: Status: Acute (2) PHILIP (acute kidney injury): Status: Acute (3) Supraventricular tachycardia: Status: Acute (4) Lactic acidosis: Status: Acute 80-year-old male with a past medical history of hypothyroidism, PTSD, depression, anxiety, urinary incontinence presents to the hospital from care home with coffee-ground emesis # coffee-ground emesis - most likely upper GI bleed - hemodynamically stable with no significant drop in hemoglobin - no history of NSAID or aspirin use - will start him on PPI IV b.i.d. - consult gastroenterology - keep NPO - will obtain abdominal CT as patient was tender on CT exam # PHILIP - most likely secondary to dehydration - will start him on IV fluids - follow BMP # supraventricular tachycardia - unclear rhythm with a heart rate in the 130s to 150s - blood pressure stable - will give 1 dose of Lopressor and re-evaluate # lactic acidosis - most likely secondary to dehydration - no evidence of infection - will start on IV fluids - follow cultures # leukocytosis - secondary to prednisone use, unlikely to have acute infection - patient has urinary incontinence and is not allowing anyone to insert Clemons catheter due to his history of Clemons catheter insertion trauma - denies any urinary symptoms at this time - afebrile - will monitor WBC count # will continue his other home medications DVT prophylaxis: SCDs in the setting of acute Quality Stroke Does the patient have a stroke diagnosis?: No VTE Prior VTE?: No VTE Risk Level:: Medical - moderate - high VTE Device Contraindication: N/A - Device Ordered VTE Drug Contraindication: Treatment Not Indicated
--- NOTE | 2021-05-08 00:18 | PM.EVENT ---
Event Note Date of Service: 05/08/21 Event Note: Abd US obtained. received call from Radiologist that pt has gas in portal venous system with ischemic descending colon wtih sig distended abdomen. call placed to Gen surgery, pt will be evaluated by OR emergenctly
[2021-05-08 00:36] LABS: ~Lactic Acid-LAB USE ONLY 2.9 mmol/L (0.5-2.0)
[2021-05-08] MEDS: Piperacillin Sodium/Tazobactam 3.375 GM in 0.9 % Sodium Chloride 50 ML IV ×3 (01:30→19:47)
[2021-05-08] MEDS: Metoprolol Tartrate 5 MG/5 ML VIAL 2.5 MG IVPUSH (01:50)
[2021-05-08 05:10] LABS: Reflex Lactate? 2 Y
--- NOTE | 2021-05-08 06:14 | P.EN_ITS ---
Event Note Date of Service: 05/08/21 Event Note: Patient was seen by Dr. Majano for exploratory laparotomy, discu ssion was meet with the patient regarding this procedure but patient refused. Patient is aware of the consequences of not undergoing this procedure given the finding of his CT scan, at this time patient is aware, and still does not want to undergo the exploratory laparotomy. At this time will start him on IV antibiotics, and IV fluids
[2021-05-08] MEDS: SODIUM CHLORIDE 2367 ML IV (07:24)
[2021-05-08 07:47] LABS: ~Lactic Acid-LAB USE ONLY 1.5 mmol/L (0.5-2.0)
--- NOTE | 2021-05-08 07:55 | P.EN_ITS ---
Event Note Date of Service: 05/08/21 Event Note: Patient had been seen and examined at 01:00 o'clock last night Full consult had been written on paper in view of computer down time He was brought to the ER [facility] in view of episode of coffee- ground emesis His CAT scan had shown portal venous gas, with what appears to be pneumatosis in an area of the distal left He has abdominal exam was benign and at that time of examination, he denied any abdominal pain or tenderness I did explain to him that it would be best to proceed with laparotomy in view of the CAT scan findings. Explained the technique of this procedure as well as the risks, benefits, and alternatives. I explained to him that if intraop findings would show nonviable bowel, he will require resection possible stoma He stated that he or did not want any surgeries at all. He understood the possible consequences of no surgical intervention including He said he understood and stated that he was prepared for this He appeared to be mentally competent Continue current care with empiric IV antibiotics, bowel rest Repeat exam now shows the abdomen to be nontender, nondistended
[2021-05-08] MEDS: Megestrol Acetate 400 MG/10 ML ORAL.SUSP PO ×2 (08:10→21:35)
[2021-05-08] MEDS: Pantoprazole Sodium 40 MG/10 ML VIAL IVPUSH ×2 (08:10→16:40)
[2021-05-08] MEDS: Cholecalciferol (Vitamin D3) 25 MCG TABLET 50 MCG PO (08:11)
[2021-05-08] MEDS: Levothyroxine Sodium 75 MCG TABLET PO (08:11)
[2021-05-08 08:12] VITALS: BP 114/66; PULSE 100
[2021-05-08] MEDS: predniSONE 5 MG TABLET PO ×2 (08:12→21:31)
[2021-05-08] MEDS: lisinopriL 2.5 MG TABLET PO (08:12)
[2021-05-08] MEDS: traMADoL HCL 50 MG TABLET 100 MG PO ×3 (08:12→21:33)
[2021-05-08] MEDS: 0.9 % Sodium Chloride Flush 3 ML SYRINGE IVFLUSH (08:24)
[2021-05-08 10:38] VITALS: TEMP 36.9
--- NOTE | 2021-05-08 10:38 | PC.NURSE ---
pt cleaned and new linen- repositioned
[2021-05-08] MEDS: Lactated Ringers 1,000 ML 100 ML IVCONT ×2 (10:58→19:46)
--- NOTE | 2021-05-08 12:32 | PC.NURSE ---
report given to s3
[2021-05-08 13:14] VITALS: BP 103/62; PULSE 104; RESP 17; TEMP 36.8; O2SAT 99
--- NOTE | 2021-05-08 14:18 | PM.EVENT ---
Event Note Date of Service: 05/08/21 Event Note: continues to deny any abdominal pain says he feels well says he does not want any surgical intervention abd remains soft, nontender, benign continue current care discussed with Tamra (HCP)
--- NOTE | 2021-05-08 15:06 | CONS_ITS ---
DATE OF SERVICE: 05/08/2021 REFERRING PHYSICIAN: Floyd Dhillon REASON FOR CONSULTATION: Hematemesis. HISTORY OF PRESENT ILLNESS: The patient is a 80-year-old [facility] resident, who was admitted to the hospital after presenting to the emergency department from the facility because of a history of hematemesis, there was reported 1 episode of vomiting in the morning and no further episodes. The patient denies any hematemesis, stating he had chocolate ice cream. He was evaluated in the emergency department, where CT scanning was done, which was interpreted as showing portal venous gas and pneumatosis and an area of the distal left colon. Surgery was recommended, but the patient declined. His hematocrit on admission was 46.3, which was up from 34.9 on April 24. There has been no documented bleeding since admission. He denies chronic GI symptoms including nausea and gastroesophageal reflux disease. He has been on prednisone at home and is not listed as being on a proton pump inhibitor at home. PAST MEDICAL HISTORY: 1. Hypothyroidism. 2. Prostate cancer. 3. PTSD with dementia and depression. 4. History of alcohol dependence. 5. BPH/prostate cancer. 6. Psoriasis. CURRENT MEDICATIONS: His current medication list is reviewed in the chart. ALLERGIES: THERE ARE NONE REPORTED. FAMILY HISTORY: This is reviewed with electronic medical record and is noncontributory. SOCIAL HISTORY: He resides at the [facility] and does not report this to abuse alcohol currently. REVIEW OF SYSTEMS: SKIN: No pruritus. HEENT: Negative. CARDIOPULMONARY: No shortness of breath or chest pain. GASTROINTESTINAL: As above. GENITOURINARY: Negative. NEUROPSYCHIATRIC: Negative. PHYSICAL EXAMINATION: GENERAL: Shows a pleasant male, lying in bed. VITAL SIGNS: Reviewed in the electronic medical record and are stable. SKIN: Pale. HEENT: Shows no scleral icterus. NECK: Without lymphadenopathy or thyromegaly. LUNGS: Clear. HEART: Shows a regular rate and rhythm. S1, S2. No murmur. ABDOMEN: Soft without focal masses or tenderness. Bowel sounds are present. No organomegaly is noted. EXTREMITIES: Without edema. LABORATORY DATA: Shows a white blood cell count of 20.1, hematocrit 46.3. BUN is slightly elevated at 37. IMPRESSION: Hematemesis. The patient appears to have had a single episode of self-limited hematemesis. The differential diagnosis for this includes erosive esophagitis, peptic ulcer disease, Sobia-Carter tear, and AVMs. He does not complain of dysphagia, which makes an esophageal mass less likely. I discussed endoscopy with him. He declines this at this time. I would recommend continuing an empiric treatment with a proton pump inhibitor and following him clinically. Thanks for asking me to see him. I will follow him in the hospital with you. MD NICOLE Mai/OSKAR / [phone]
[2021-05-08 15:50] VITALS: BP 114/61; PULSE 98; RESP 18; TEMP 36.2; O2SAT 98
--- NOTE | 2021-05-08 16:50 | P.PNIM_ITS ---
Subjective Subjective Date of Service: 05/08/21 Interval History: Coffee-ground emesis, abdominal pain Review of Systems Denies any new complaint of chest pain or shortness of breath or fever or chills Denies any cough Denies any weakness or numbness. Mild tachycardia Physical Exam Vital Signs: Vital Signs: Last Vital Signs Temp 97.2 F 05/08/21 15:50 Pulse 98 05/08/21 15:50 Resp 18 05/08/21 15:50 BP 114/61 05/08/21 15:50 Pulse Ox 98 05/08/21 15:50 Body Mass Index 24.3 Objective Data Active Medications Acetaminophen (Acetaminophen 325 Mg Tablet) 650 mg PO Q4H PRN PRN Reason: pain/fever Artificial Tears (Artificial Tears 15 Ml Drops) 1 drop EYE-BOTH DAILY [facility] Last Admin: 05/08/21 13:27 Dose: Not Given Documented by: ROSARIO Non-Admin Reason: Not In Room Docusate Sodium (Docusate Sodium 100 Mg Capsule) 100 mg PO DAILY PRN PRN Reason: Constipation Fluticasone Propionate (Fluticasone Propionate Nasal 16 Gm [place]) 1 spray NOSTRIL-B BID PRN PRN Reason: Allergy Symptoms Piperacillin Sod/Tazobactam (Sod 3.375 gm/ Sodium Chloride) 50 mls @ 100 mls/hr IV Q6H [facility] Last Admin: 05/08/21 14:15 Dose: Not Given Documented by: ROSARIO Non-Admin Reason: Medication Discontinued Lactated Ringer's (Lr) 1,000 mls @ 100 mls/hr IVCONT .Q10H [facility] Last Admin: 05/08/21 16:41 Dose: Not Given Documented by: MELIDA Non-Admin Reason: IV Running Levothyroxine Sodium (Levothyroxine Sodium 75 Mcg Tablet) 75 mcg PO DAILY@0600 [facility] Last Admin: 05/08/21 08:11 Dose: 75 mcg Documented by: NICO Lisinopril (Lisinopril 2.5 Mg Tablet) 2.5 mg PO DAILY [facility]; Protocol Last Admin: 05/08/21 08:12 Dose: 2.5 mg Documented by: NICO Megestrol Acetate (Megestrol Acetate 400 Mg/10 Ml Oral.Susp) 400 mg PO BID [facility] Last Admin: 05/08/21 08:10 Dose: 400 mg Documented by: NICO Melatonin (Melatonin 3 Mg Tablet) 3 mg PO BEDTIME [facility] Ondansetron HCl (Ondansetron Hcl 4 Mg/2 Ml Vial) 4 mg IVPUSH Q8H PRN PRN Reason: Nausea and Vomiting Oxybutynin Chloride (Oxybutynin Chloride Er 5 Mg Tab.Er.24) 10 mg PO DAILY [facility] Last Admin: 05/08/21 08:11 Dose: 10 mg Documented by: NICO Pantoprazole Sodium (Pantoprazole Sodium 40 Mg/10 Ml Vial) 40 mg IVPUSH BID@0 630,1630 [facility] Last Admin: 05/08/21 16:40 Dose: 40 mg Documented by: MELIDA Paroxetine HCl (Paroxetine Hcl 10 Mg Tablet) 15 mg PO BEDTIME [facility] Pharmacy Consult (Consult Rx Perform Med Rec) 1 each MISCELLANE ONCE PRN PRN Reason: Consult order Prednisone (Prednisone 5 Mg Tablet) 5 mg PO BID [facility] Last Admin: 05/08/21 08:12 Dose: 5 mg Documented by: NICO Sodium Chloride (0.9 % Sodium Chloride Flush 3 Ml Syringe) 3 ml IVFLUSH QSHIFT [facility] Last Admin: 05/08/21 16:41 Dose: Not Given Documented by: MELIDA Non-Admin Reason: IV Running Tramadol HCl (Tramadol Hcl 50 Mg Tablet) 100 mg PO Q8H [facility] Last Admin: 05/08/21 16:40 Dose: 100 mg Documented by: MELIDA Trazodone HCl (Trazodone Hcl 50 Mg Tablet) 50 mg PO BEDTIME [facility] Vitamin D (Cholecalciferol (Vitamin D3) 25 Mcg Tablet) 50 mcg PO DAILY [facility] Last Admin: 05/08/21 08:11 Dose: 50 mcg Documented by: NICO Labs CBC & Chem 7: 05/07/21 20:19 05/07/21 20:20 Labs: Laboratory Results - last 24 hr 05/07/21 05/07/21 05/07/21 20:19 20:19 20:19 MCV 96.5 MCH 32.5 MCHC 33.7 RDW 12.9 Plt Count 311 D MPV 9.9 Immature Gran % (Auto) 1.0 H Neut % (Auto) 82.4 H Lymph % (Auto) 9.2 L [place] % (Auto) 7.3 Eos % (Auto) 0.0 Baso % (Auto) 0.1 Lymph # (Auto) 1.8 [place] # (Auto) 1.5 H Eos # (Auto) 0.0 Baso # (Auto) 0.0 Abs Immat Gran (auto) 0.20 H Absolute Neuts (auto) 16.5 H Absolute Nucleated RBC 0.000 Nucleated RBC % (auto) 0.0 PT 11.2 INR 1.0 APTT 34.9 Anion Gap Estim Creat Clear Calc Estimated GFR Random Glucose Lactic Acid Lactic Acid Fup @ 2Hr Lactic Acid Fup @ 4Hr Calcium Total Bilirubin Direct Bilirubin AST ALT Alkaline Phosphatase Troponin I High Sens 33.5 B-Natriuretic Peptide 100 Total Protein Albumin Lipase COVID-19 ([facility]LENA) COVID-19 [employer] 05/07/21 05/07/21 05/07/21 20:20 20:20 20:20 MCV MCH MCHC RDW Plt Count MPV Immature Gran % (Auto) Neut % (Auto) Lymph % (Auto) [place] % (Auto) Eos % (Auto) Baso % (Auto) Lymph # (Auto) [place] # (Auto) Eos # (Auto) Baso # (Auto) Abs Immat Gran (auto) Absolute Neuts (auto) Absolute Nucleated RBC Nucleated RBC % (auto) PT INR APTT Anion Gap 17 Estim Creat Clear Calc 49.8 Estimated GFR 53 Random Glucose 123 H D Lactic Acid 4.2 H* Lactic Acid Fup @ 2Hr Lactic Acid Fup @ 4Hr Calcium 9.5 D Total Bilirubin 0.9 Direct Bilirubin 0.4 AST 24 ALT 80 H Alkaline Phosphatase 81 Troponin I High Sens B-Natriuretic Peptide Total Protein 6.4 L D Albumin 3.8 D Lipase 4 L COVID-19 ([facility]LENA) Negative COVID-CARDFREE Com See Note 05/08/21 05/08/21 00:15 07:27 MCV MCH MCHC RDW Plt Count MPV Immature Gran % (Auto) Neut % (Auto) Lymph % (Auto) [place] % (Auto) Eos % (Auto) Baso % (Auto) Lymph # (Auto) [place] # (Auto) Eos # (Auto) Baso # (Auto) Abs Immat Gran (auto) Absolute Neuts (auto) Absolute Nucleated RBC Nucleated RBC % (auto) PT INR APTT Anion Gap Estim Creat Clear Calc Estimated GFR Random Glucose Lactic Acid Lactic Acid Fup @ 2Hr 2.9 H* Lactic Acid Fup @ 4Hr 1.5 Calcium Total Bilirubin Direct Bilirubin AST ALT Alkaline Phosphatase Troponin I High Sens B-Natriuretic Peptide Total Protein Albumin Lipase COVID-19 ([facility]) COVID-19 Clin Com Assessment and Plan (1) Acute ischemic colitis: Status: Acute (2) Supraventricular tachycardia: Status: Acute (3) Coffee ground emesis: Status: Acute (4) PHILIP (acute kidney injury): Status: Acute Assessment and Plan: 80-year-old male with a past medical history of hypothyroidism, PTSD, depressio n, anxiety, urinary incontinence [facility]-ground emesis 1. coffee-ground emesis- most likely upper GI bleed h/h stable ,no history of NSAID or aspirin use keep NPO, on PPI IV b.i.d, ivf consult gastroenterology: recomended egd-patient declined. 2. PHILIP - most likely secondary to dehydration on IV fluids,follow BMP 3.supraventricular tachycardia unclear rhythm with a heart rate in the 100's, got lopressor 1 dose , seems improving blood pressure stable 4.lactic acidosis- most likely secondary to dehydration imrpved wth ivf. 5. leukocytosis/?CT scanning was done, which was interpreted as showing portal venous gas and pneumatosis and an area of the distal left colon.? afebrile, WBC count increasing d/w surgery and Gi-currently patient is refusing surgery: Recommendation is continue IV antibiotic, bowel rest, IV fluids. Above management discussed with patient by surgery ,GI and also myself- patient categorically refuses for surgery ,we will treat conservatively as above. Patient management discussed with his daughter miss chan in detail-phone number [phone]: His overall prognosis discussed, daughter is thinking about DNR DNI but she still wants to wait until she comes and see him probably tomorrow. Currently patient is full code. Kindly update daughter if patient condition worsens further. Total time spent 70 minutes. Quality Stroke Does the patient have a stroke diagnosis?: No VTE Prior VTE?: No VTE Risk Level:: Medical - moderate - high VTE Device Contraindication: N/A - Device Ordered VTE Drug Contraindication: Treatment Not Indicated
[2021-05-08 19:18] VITALS: BP 130/61; PULSE 93; RESP 16; TEMP 36.1; O2SAT 96
[2021-05-08] MEDS: traZODone HCL 50 MG TABLET PO (21:31)
[2021-05-08] MEDS: PARoxetine HCL 10 MG TABLET 15 MG PO (21:32)
[2021-05-08] MEDS: Melatonin 3 MG TABLET PO (21:32)
[2021-05-09] VITALS (7 sets, daily range): BP systolic 113–160; BP diastolic 56–80; PULSE 88–117; RESP 16–19; TEMP 36–36.8; O2SAT 92–99
[2021-05-09] MEDS: Piperacillin Sodium/Tazobactam 3.375 GM in 0.9 % Sodium Chloride 50 ML IV ×4 (00:14→21:32)
[2021-05-09] MEDS: Levothyroxine Sodium 75 MCG TABLET PO (05:43)
[2021-05-09] MEDS: Pantoprazole Sodium 40 MG/10 ML VIAL IVPUSH ×2 (05:43→15:24)
[2021-05-09] MEDS: Lactated Ringers 1,000 ML 100 ML IVCONT ×3 (05:44→23:21)
[2021-05-09 06:29] LABS: Hematocrit 36.8 % (42-52); Hemoglobin 12.4 g/dl (14.0-18.0); Mean Corpuscular HGB Conc 33.7 g/dl (31.0-36.0); Mean Corpuscular Volume 95.1 fL (80-98); Mean Platelet Volume 10.4 fL (9.4-12.4); Platelet Count 174 X10*3/uL (160-400); Red Blood Count 3.87 X10*6/uL (4.60-5.80); Red Cell Distribution Width 12.7 % (11.0-16.0); White Blood Count 9.3 X10*3/uL (4.8-10.8)
[2021-05-09 06:41] LABS: Anion Gap 12 (12-20); Blood Urea Nitrogen 27 mg/dL (9-16); Calcium 8.6 mg/dL (8.4-10.2); Carbon Dioxide 19 mmol/L (22-29); Chloride 108 mmol/L (96-108); Estimated Glomerular Filt Rate > 60; Glucose Random 79 mg/dL (60-115); Potassium 4.4 mmol/L (3.3-5.1); Sodium 135 mmol/L (135-145)
[2021-05-09] MEDS: Cholecalciferol (Vitamin D3) 25 MCG TABLET 50 MCG PO (09:20)
[2021-05-09] MEDS: Megestrol Acetate 400 MG/10 ML ORAL.SUSP PO (09:20)
[2021-05-09] MEDS: 0.9 % Sodium Chloride Flush 3 ML SYRINGE IVFLUSH (09:21)
[2021-05-09] MEDS: lisinopriL 2.5 MG TABLET PO (09:21)
[2021-05-09] MEDS: traMADoL HCL 50 MG TABLET 100 MG PO ×3 (09:22→21:35)
[2021-05-09] MEDS: predniSONE 5 MG TABLET PO ×2 (09:22→21:34)
[2021-05-09] MEDS: Artificial Tears 15 ML DROPS 1 DROP EYE-BOTH (09:24)
--- NOTE | 2021-05-09 12:03 | PM.GIPN ---
Subjective Subjective Date of Service: 05/09/21 Interval History: feels well no vomiting Critical Care Time (minutes): 0 Physical Exam Vital Signs: Vital Signs: Last Vital Signs Temp 97.7 F 05/09/21 08:00 Pulse 117 H 05/09/21 08:00 Resp 18 05/09/21 08:00 BP 160/80 H 05/09/21 08:00 Pulse Ox 99 05/09/21 08:00 Body Mass Index 24.3 Const: General: cooperative GI: Other: abdomen is soft and nontender Skin: Other: pale Objective Data Labs CBC & Chem 7: 05/09/21 05:27 05/09/21 05:27 Microbiology Microbiology Results: Microbiology 05/07/21 20:20 Blood - Venous Blood Culture - Preliminary No growth after 24 hours. 05/07/21 20:20 Blood - Venous Blood Culture - Preliminary No growth after 24 hours. Procedures Date of Service Date of Service: 05/09/21 Progress Note: A&P Assessment and plan (1) Hematemesis: Status: Acute Assessment and Plan: no further bleeding hct stable pt declines endoscopy continue ppi Fall Risk Details Current Medications: Current Medications Acetaminophen (Acetaminophen 325 Mg Tablet) 650 mg PO Q4H PRN PRN Reason: pain/fever Artificial Tears (Artificial Tears 15 Ml Drops) 1 drop EYE-BOTH DAILY [facility] Last Admin: 05/09/21 09:24 Dose: 1 drop Documented by: Docusate Sodium (Docusate Sodium 100 Mg Capsule) 100 mg PO DAILY PRN PRN Reason: Constipation Fluticasone Propionate (Fluticasone Propionate Nasal 16 Gm [place]) 1 spray NOSTRIL-B BID PRN PRN Reason: Allergy Symptoms Piperacillin Sod/Tazobactam (Sod 3.375 gm/ Sodium Chloride) 50 mls @ 100 mls/hr IV Q6H [facility] Last Infusion: 05/09/21 09:50 Dose: Infused Documented by: Lactated Ringer's (Lr) 1,000 mls @ 100 mls/hr IVCONT .Q10H [facility] Last Admin: 05/09/21 05:44 Dose: 100 mls/hr Documented by: Levothyroxine Sodium (Levothyroxine Sodium 75 Mcg Tablet) 75 mcg PO DAILY@0600 [facility] Last Admin: 05/09/21 05:43 Dose: 75 mcg Documented by: Lisinopril (Lisinopril 2.5 Mg Tablet) 2.5 mg PO DAILY [facility]; Protocol Last Admin: 05/09/21 09:21 Dose: 2.5 mg Documented by: Megestrol Acetate (Megestrol Acetate 400 Mg/10 Ml Oral.Susp) 400 mg PO BID [facility] Last Admin: 05/09/21 09:20 Dose: 400 mg Documented by: Melatonin (Melatonin 3 Mg Tablet) 3 mg PO BEDTIME [facility] Last Admin: 05/08/21 21:32 Dose: 3 mg Documented by: Ondansetron HCl (Ondansetron Hcl 4 Mg/2 Ml Vial) 4 mg IVPUSH Q8H PRN PRN Reason: Nausea and Vomiting Oxybutynin Chloride (Oxybutynin Chloride Er 5 Mg Tab.Er.24) 10 mg PO DAILY [facility] Last Admin: 05/09/21 09:21 Dose: 10 mg Documented by: Pantoprazole Sodium (Pantoprazole Sodium 40 Mg/10 Ml Vial) 40 mg IVPUSH BID@0630,1630 [facility] Last Admin: 05/09/21 05:43 Dose: 40 mg Documented by: Paroxetine HCl (Paroxetine Hcl 10 Mg Tablet) 15 mg PO BEDTIME [facility] Last Admin: 05/08/21 21:32 Dose: 15 mg Documented by: Pharmacy Consult (Consult Rx Perform Med Rec) 1 each MISCELLANE ONCE PRN PRN Reason: Consult order Prednisone (Prednisone 5 Mg Tablet) 5 mg PO BID [facility] Last Admin: 05/09/21 09:22 Dose: 5 mg Documented by: Sodium Chloride (0.9 % Sodium Chloride Flush 3 Ml Syringe) [facility] Admin: 05/09/21 09:21 Dose: 3 ml Documented by: Tramadol HCl (Tramadol Hcl 50 Mg Tablet) 100 mg PO Q8H [facility] Last Admin: 05/09/21 09:22 Dose: 100 mg Documented by: Trazodone HCl (Trazodone Hcl 50 Mg Tablet) 50 mg PO BEDTIME [facility] Last Admin: 05/08/21 21:31 Dose: 50 mg Documented by: Vitamin D (Cholecalciferol (Vitamin D3) 25 Mcg Tablet) 50 mcg PO DAILY [facility] Last Admin: 05/09/21 09:20 Dose: 50 mcg Documented by: Time Spent With Patient Time: Total time spent is greater than 50% in coordination of care (as documented) at patient's floor/unit and/or counseling patient: Time with patient: less than 15 minutes Quality Stroke Does the patient have a stroke diagnosis?: No VTE Prior VTE?: No VTE Risk Level:: Medical - moderate - high VTE Device Contraindication: N/A - Device Ordered VTE Drug Contraindication: Treatment Not Indicated
--- NOTE | 2021-05-09 12:50 | MHC.CM.PN ---
EMR REVIEWED, PER GI PT'S HCT IS STABLE, PT CONT'S TO REFUSE ENDOSCOPY AND PLAN IS TO KEEP PT ON PPI FOR NOW, PER HOSPITALIST PT'S DTR IS SUPPOSE TO COME IN THIS AFTERNOON TO SPEAK W/PT REGARDING ENDOSCOPY. CM WILL CONT TO FOLLOW.
--- NOTE | 2021-05-09 14:48 | P.PNIM_ITS ---
Subjective Subjective Date of Service: 05/09/21 Interval History: coffee ground philip, ?portal venous gas and pneumatosis and an area of the distal left colon.? Review of Systems Patient denies any abdominal pain, said he was little gases today Denies any new complaint of chest pain or shortness of breath or abdominal pain or fever or chills or nausea or vomiting Denies any cough Denies any weakness or numbness. Physical Exam Vital Signs: Vital Signs: Last Vital Signs Temp 97 F 05/09/21 12:00 Pulse 117 H 05/09/21 08:00 Resp 18 05/09/21 08:00 BP 160/80 H 05/09/21 08:00 Pulse Ox 99 05/09/21 08:00 Body Mass Index 24.3 Physical exam: Appearance: Alert.? Oriented X3.? not in distress.? Eyes: Pupils equal, round and reactive to light.? Sclera nonicteric.? ENT: Pharynx normal.? Moist mucous membranes. cvs: rrr, [id number] , no murmur res: clear to auscultation ,no rhonchii or wheezing abd: no rebound or guarding, no pain,bs present. ext pulses present , no cyanosis ,Gait well balanced well coordinated. neuro: axo3 , nonfocal. Objective Data Active Medications Acetaminophen (Acetaminophen 325 Mg Tablet) 650 mg PO Q4H PRN PRN Reason: pain/fever Artificial Tears (Artificial Tears 15 Ml Drops) 1 drop EYE-BOTH DAILY [facility] Last Admin: 05/09/21 09:24 Dose: 1 drop Documented by: CHERISE Docusate Sodium (Docusate Sodium 100 Mg Capsule) 100 mg PO DAILY PRN PRN Reason: Constipation Fluticasone Propionate (Fluticasone Propionate Nasal 16 Gm [place]) 1 spray NOSTRIL-B BID PRN PRN Reason: Allergy Symptoms Piperacillin Sod/Tazobactam (Sod 3.375 gm/ Sodium Chloride) 50 mls @ 100 mls/hr IV Q6H [facility] Last Admin: 05/09/21 14:33 Dose: 100 mls/hr Documented by: CHERISE Lactated Ringer's (Lr) 1,000 mls @ 100 mls/hr IVCONT .Q10H [facility] Last Admin: 05/09/21 14:34 Dose: 100 mls/hr Documented by: CHERISE Levothyroxine Sodium (Levothyroxine Sodium 75 Mcg Tablet) 75 mcg PO DAILY@0600 [facility] Last Admin: 05/09/21 05:43 Dose: 75 mcg Documented by: DEBBIE Lisinopril (Lisinopril 2.5 Mg Tablet) 2.5 mg PO DAILY [facility]; Protocol Last Admin: 05/09/21 09:21 Dose: 2.5 mg Documented by: CHERISE Megestrol Acetate (Megestrol Acetate 400 Mg/10 Ml Oral.Susp) 400 mg PO BID [facility] Last Admin: 05/09/21 09:20 Dose: 400 mg Documented by: CHERISE Melatonin (Melatonin 3 Mg Tablet) 3 mg PO BEDTIME [facility] Last Admin: 05/08/21 21:32 Dose: 3 mg Documented by: DEBBIE Ondansetron HCl (Ondansetron Hcl 4 Mg/2 Ml Vial) 4 mg IVPUSH Q8H PRN PRN Reason: Nausea and Vomiting Oxybutynin Chloride (Oxybutynin Chloride Er 5 Mg Tab.Er.24) 10 mg PO DAILY [facility] Last Admin: 05/09/21 09:21 Dose: 10 mg Documented by: CHERISE Pantoprazole Sodium (Pantoprazole Sodium 40 Mg/10 Ml Vial) 40 mg IVPUSH BID@0630,1630 [facility] Last Admin: 05/09/21 05:43 Dose: 40 mg Documented by: DEBBIE Paroxetine HCl (Paroxetine Hcl 10 Mg Tablet) 15 mg PO BEDTIME [facility] Last Admin: 05/08/21 21:32 Dose: 15 mg Documented by: DEBBIE Pharmacy Consult (Consult Rx Perform Med Rec) 1 each MISCELLANE ONCE PRN PRN Reason: Consult order Prednisone (Prednisone 5 Mg Tablet) 5 mg PO BID [facility] Last Admin: 05/09/21 09:22 Dose: 5 mg Documented by: CHERISE Sodium Chloride (0.9 % Sodium Chloride Flush 3 Ml Syringe) 3 ml IVFLUSH QSHIFT [facility] Last Admin: 05/09/21 09:21 Dose: 3 ml Documented by: CHERISE Tramadol HCl (Tramadol Hcl 50 Mg Tablet) 100 mg PO Q8H [facility] Last Admin: 05/09/21 09:22 Dose: 100 mg Documented by: CHERISE Trazodone HCl (Trazodone Hcl 50 Mg Tablet) 50 mg PO BEDTIME [facility] Last Admin: 05/08/21 21:31 Dose: 50 mg Documented by: DEBBIE Vitamin D (Cholecalciferol (Vitamin D3) 25 Mcg Tablet) 50 mcg PO DAILY [facility] Last Admin: 05/09/21 09:20 Dose: 50 mcg Documented by: CHERISE Labs CBC & Chem 7: 05/09/21 05:27 05/09/21 05:27 Labs: Laboratory Results - last 24 hr 05/09/21 05/09/21 05:27 05:27 MCV 95.1 MCH 32.0 MCHC 33.7 RDW 12.7 Plt Count 174 D MPV 10.4 Absolute Nucleated RBC 0.000 Nucleated RBC % (auto) 0.0 Anion Gap 12 Estim Creat Clear Calc 80.0 Estimated GFR > 60 Random Glucose 79 D Calcium 8.6 D Microbiology Microbiology Results: Microbiology 05/07/21 20:20 Blood Culture - Preliminary Blood - Venous No growth after 24 hours. 05/07/21 20:20 Blood Culture - Preliminary Blood - Venous No growth after 24 hours. Assessment and Plan (1) Acute ischemic colitis: Status: Acute (2) PHILIP (acute kidney injury): Status: Acute (3) Coffee ground emesis: Status: Acute Assessment and Plan: 80-year-old male with a past medical history of hypothyroidism, PTSD, depression, anxiety, urinary incontinence [place] [facility] hospital [facility] with coffee-ground emesis 1. coffee-ground emesis- most likely upper GI bleed h/h stable ,no history of NSAID or aspirin use ?keep NPO, on PPI IV b.i.d, ivf consult gastroenterology: recomended egd-patient declined. 2. PHILIP - most likely secondary to dehydration on IV fluids,follow BMP 3.supraventricular tachycardia ?unclear rhythm with a heart rate in the 100's, ?blood pressure stable continue to moniter 4.lactic acidosis- most likely secondary to dehydration ?imrpved? wth ivf. 5. leukocytosis/?CT scanning was done, which was interpreted as showing portal venous gas and pneumatosis and an area of the distal left colon.? afebrile, leucocytsosis resolved. d/w surgery and Gi-currently patient is refusing surgery: Recommendation is continue IV antibiotic, bowel rest, gentle IV fluids. Above management discussed with patient by surgery ,GI and also myself- patient categorically refuses for surgery ,we will treat conservatively as above. Patient management discussed with his daughter miss chan in detail-phone number [phone]:? His overall prognosis discussed,? daughter is thinking about DNR DNI but she still wants to wait until she comes and see him probably tomorrow.? Currently patient is full code. Kindly update daughter if patient condition worsens further. Quality Stroke Does the patient have a stroke diagnosis?: No VTE Prior VTE?: No VTE Risk Level:: Medical - moderate - high VTE Device Contraindication: N/A - Device Ordered VTE Drug Contraindication: Treatment Not Indicated
--- NOTE | 2021-05-09 15:12 | PM.PNGS ---
Subjective Subjective Date of Service: 05/09/21 Interval history: Continues to deny abdominal pain Says he feels well No Events reported Physical Exam Vital Signs: Vital Signs: Last Vital Signs Temp 97 F 05/09/21 12:00 Pulse 117 H 05/09/21 08:00 Resp 18 05/09/21 08:00 BP 160/80 H 05/09/21 08:00 Pulse Ox 99 05/09/21 08:00 Body Mass Index 24.3 Const: Other: Chemistry 05/07/21 05/09/21 20:20 05:27 Sodium 138 135 Potassium 4.5 4.4 Carbon Dioxide 19 L 19 L BUN 37 H 27 H Creatinine 1.30 0.81 Calcium 9.5 D 8.6 D Hematology 05/07/21 05/09/21 20:19 05:27 WBC 20.1 H 9.3 Hgb 15.6 D 12.4 L D Plt Count 311 D 174 D General: comfortable and no acute distress Resp: Effort & Inspection: normal respiratory effort Cardio: Rhythm: regular rhythm GI: Palpation (GI): Soft to palpation, nontender and no guarding Procedures Date of Service Date of Service: 05/09/21 Progress Note: A&P Assessment and plan (1) Acute ischemic colitis: Status: Acute Assessment and Plan: Had portal venous gas on admission, area of left colon with pneumatosis Clinically asymptomatic WBC normal No tenderness exam Looks well Okay to start clear liquids and slowly advance as tolerated Patient has refused surgery Discussed with family Fall Risk Details Current Medications: Current Medications Acetaminophen (Acetaminophen 325 Mg Tablet) 650 mg PO Q4H PRN PRN Reason: pain/fever Artificial Tears (Artificial Tears 15 Ml Drops) 1 drop EYE-BOTH DAILY [facility] Last Admin: 05/09/21 09:24 Dose: 1 drop Documented by: Docusate Sodium (Docusate Sodium 100 Mg Capsule) 100 mg PO DAILY PRN PRN Reason: Constipation Fluticasone Propionate (Fluticasone Propionate Nasal 16 Gm [place]) 1 spray NOSTRIL-B BID PRN PRN Reason: Allergy Symptoms Piperacillin Sod/Tazobactam (Sod 3.375 gm/ Sodium Chloride) 50 mls @ 100 mls/hr IV Q6H [facility] Last Admin: 05/09/21 14:33 Dose: 100 mls/hr Documented by: Lactated Ringer's (Lr) 1,000 mls @ 100 mls/hr IVCONT .Q10H [facility] Last Admin: 05/09/21 14:34 Dose: 100 mls/hr Documented by: Levothyroxine Sodium (Levothyroxine Sodium 75 Mcg Tablet) 75 mcg PO DAILY@0600 [facility] Last Admin: 05/09/21 05:43 Dose: 75 mcg Documented by: Lisinopril (Lisinopril 2.5 Mg Tablet) 2.5 mg PO DAILY [facility]; Protocol Last Admin: 05/09/21 09:21 Dose: 2.5 mg Documented by: Megestrol Acetate (Megestrol Acetate 400 Mg/10 Ml Oral.Susp) 400 mg PO BID [facility] Last Admin: 05/09/21 09:20 Dose: 400 mg Documented by: Melatonin (Melatonin 3 Mg Tablet) 3 mg PO BEDTIME [facility] Last Admin: 05/08/21 21:32 Dose: 3 mg Documented by: Ondansetron HCl (Ondansetron Hcl 4 Mg/2 Ml Vial) 4 mg IVPUSH Q8H PRN PRN Reason: Nausea and Vomiting Oxybutynin Chloride (Oxybutynin Chloride Er 5 Mg Tab.Er.24) 10 mg PO DAILY [facility] Last Admin: 05/09/21 09:21 Dose: 10 mg Documented by: Pantoprazole Sodium (Pantoprazole Sodium 40 Mg/10 Ml Vial) 40 mg IVPUSH BID@0630,1630 [facility] Last Admin: 05/09/21 05:43 Dose: 40 mg Documented by: Paroxetine HCl (Paroxetine Hcl 10 Mg Tablet) 15 mg PO BEDTIME [facility] Last Admin: 05/08/21 21:32 Dose: 15 mg Documented by: Pharmacy Consult (Consult Rx Perform Med Rec) 1 each MISCELLANE ONCE PRN PRN Reason: Consult order Prednisone (Prednisone 5 Mg Tablet) 5 mg PO BID [facility] Last Admin: 05/09/21 09:22 Dose: 5 mg Documented by: Sodium Chloride (0.9 % Sodium Chloride Flush 3 Ml Syringe) 3 ml IVFLUSH QSHIFT [facility] Last Admin: 05/09/21 09:21 Dose: 3 ml Documented by: Tramadol HCl (Tramadol Hcl 50 Mg Tablet) 100 mg PO Q8H [facility] Last Admin: 05/09/21 09:22 Dose: 100 mg Documented by: Trazodone HCl (Trazodone Hcl 50 Mg Tablet) 50 mg PO BEDTIME [facility] Last Admin: 05/08/21 21:31 Dose: 50 mg Documented by: Vitamin D (Cholecalciferol (Vitamin D3) 25 Mcg Tablet) 50 mcg PO DAILY [facility] Last Admin: 05/09/21 09:20 Dose: 50 mcg Documented by: Time Spent With Patient Time: Total time spent is greater than 50% in coordination of care (as documented) at patient's floor/unit and/or counseling patient: Time with patient: 15 - 24 minutes Quality Stroke Does the patient have a stroke diagnosis?: No VTE Prior VTE?: No VTE Risk Level:: Medical - moderate - high VTE Device Contraindication: N/A - Device Ordered VTE Drug Contraindication: Treatment Not Indicated
--- NOTE | 2021-05-09 16:38 | MHC.CM.PN ---
PT IS A LTC RESIDENT OF [facility] PT HAS A HCP ON FILE AND IS A FULL CODE. PTS PCP IS [facility]IR[facility] CM CONTACTED PTS HCP, ROULA ORTIZ ([phone]) MEDICARE RIGHTS WERE REVIEWED AND A COPY WAS EMAILED TO HER @ [email or web address] ROULA ALSO PROVIDED HER MAILING ADDRESS: [address] [place] [address] [place] [address]
[2021-05-09] MEDS: traZODone HCL 50 MG TABLET PO (21:34)
[2021-05-09] MEDS: PARoxetine HCL 10 MG TABLET 15 MG PO (21:34)
[2021-05-09] MEDS: Melatonin 3 MG TABLET PO (21:34)
[2021-05-10] VITALS (7 sets, daily range): BP systolic 135–149; BP diastolic 69–76; PULSE 83–98; RESP 15–18; TEMP 36.2–37.3; O2SAT 94–100
[2021-05-10] MEDS: Piperacillin Sodium/Tazobactam 3.375 GM in 0.9 % Sodium Chloride 50 ML IV ×4 (03:13→19:33)
[2021-05-10] MEDS: Pantoprazole Sodium 40 MG/10 ML VIAL IVPUSH ×2 (06:04→17:20)
[2021-05-10] MEDS: Levothyroxine Sodium 75 MCG TABLET PO (06:04)
[2021-05-10 07:04] LABS: Anion Gap 14 (12-20); Blood Urea Nitrogen 15 mg/dL (9-16); Calcium 8.2 mg/dL (8.4-10.2); Carbon Dioxide 18 mmol/L (22-29); Chloride 107 mmol/L (96-108); Creatinine Clr Calc Pharmacy 88.8; Estimated Glomerular Filt Rate > 60; Glucose Random 94 mg/dL (60-115); Potassium 4.2 mmol/L (3.3-5.1); Sodium 135 mmol/L (135-145)
[2021-05-10] MEDS: traMADoL HCL 50 MG TABLET 100 MG PO (08:07)
[2021-05-10] MEDS: predniSONE 5 MG TABLET PO ×2 (08:07→19:36)
[2021-05-10] MEDS: 0.9 % Sodium Chloride Flush 3 ML SYRINGE IVFLUSH (08:08)
[2021-05-10] MEDS: lisinopriL 2.5 MG TABLET PO (08:09)
[2021-05-10] MEDS: Megestrol Acetate 400 MG/10 ML ORAL.SUSP PO (08:09)
[2021-05-10] MEDS: Cholecalciferol (Vitamin D3) 25 MCG TABLET 50 MCG PO (08:09)
[2021-05-10] MEDS: Artificial Tears 15 ML DROPS 1 DROP EYE-BOTH (08:11)
[2021-05-10] MEDS: Lactated Ringers 1,000 ML 100 ML IVCONT ×2 (09:31→19:31)
--- NOTE | 2021-05-10 11:18 | HO.PM.IMPN ---
Subjective Subjective Date of Service: 05/10/21 Interval History: portal venous gas and pneumatosis Review of Systems Denies any new complaint of chest pain or shortness of breath or abdominal pain or fever or chills or nausea or vomiting Denies any cough Denies any weakness or numbness. Physical Exam Vital Signs: Vital Signs: Last Vital Signs Temp 97.1 F 05/10/21 07:56 Pulse 96 05/10/21 08:09 Resp 15 05/10/21 07:56 BP 149/72 H 05/10/21 08:09 Pulse Ox 99 05/10/21 07:56 Body Mass Index 24.3 Appearance:? not in distress.? Eyes: Pupils equal, round and reactive to light.? Sclera nonicteric.? ENT: Pharynx normal.? Moist mucous membranes. cvs: rrr, [id number] , no murmur res: clear to auscultation ,no rhonchii or wheezing abd: no rebound or guarding, no pain,bs present. ext pulses present , no cyanosis neuro: axo3 ,moves alll extermities Objective Data Active Medications Acetaminophen (Acetaminophen 325 Mg Tablet) 650 mg PO Q4H PRN PRN Reason: pain/fever Artificial Tears (Artificial Tears 15 Ml Drops) 1 drop EYE-BOTH DAILY [facility] Last Admin: 05/10/21 08:11 Dose: 1 drop Documented by: RADHA Docusate Sodium (Docusate Sodium 100 Mg Capsule) 100 mg PO DAILY PRN PRN Reason: Constipation Fluticasone Propionate (Fluticasone Propionate Nasal 16 Gm [place]) 1 spray NOSTRIL-B BID PRN PRN Reason: Allergy Symptoms Piperacillin Sod/Tazobactam (Sod 3.375 gm/ Sodium Chloride) 50 mls @ 100 mls/hr IV Q6H [facility] Last Infusion: 05/10/21 08:43 Dose: 0 mls/hr Documented by: RADHA Lactated Ringer's (Lr) 1,000 mls @ 100 mls/hr IVCONT .Q10H [facility] Last Admin: 05/10/21 09:31 Dose: 100 mls/hr Documented by: RADHA Levothyroxine Sodium (Levothyroxine Sodium 75 Mcg Tablet) 75 mcg PO DAILY@0600 [facility] Last Admin: 05/10/21 06:04 Dose: 75 mcg Documented by: DEBBIE Lisinopril (Lisinopril 2.5 Mg Tablet) 2.5 mg PO DAILY [facility]; Protocol Last Admin: 05/10/21 08:09 Dose: 2.5 mg Documented by: RADHA Megestrol Acetate (Megestrol Acetate 400 Mg/10 Ml Oral.Susp) 400 mg PO BID [facility] Last Admin: 05/10/21 08:09 Dose: 400 mg Documented by: RADHA Melatonin (Melatonin 3 Mg Tablet) 3 mg PO BEDTIME [facility] Last Admin: 05/09/21 21:34 Dose: 3 mg Documented by: DEBBIE Ondansetron HCl (Ondansetron Hcl 4 Mg/2 Ml Vial) 4 mg IVPUSH Q8H PRN PRN Reason: Nausea and Vomiting Oxybutynin Chloride (Oxybutynin Chloride Er 5 Mg Tab.Er.24) 10 mg PO DAILY [facility] Last Admin: 05/10/21 08:07 Dose: 10 mg Documented by: RADHA Pantoprazole Sodium (Pantoprazole Sodium 40 Mg/10 Ml Vial) 40 mg IVPUSH BID@0630,1630 [facility] Last Admin: 05/10/21 06:04 Dose: 40 mg Documented by: DEBBIE Paroxetine HCl (Paroxetine Hcl 10 Mg Tablet) 15 mg PO BEDTIME [facility] Last Admin: 05/09/21 21:34 Dose: 15 mg Documented by: DEBBIE Pharmacy Consult (Consult Rx Perform Med Rec) 1 each MISCELLANE ONCE PRN PRN Reason: Consult order Prednisone (Prednisone 5 Mg Tablet) 5 mg PO BID [facility] Last Admin: 05/10/21 08:07 Dose: 5 mg Documented by: RDAHA Sodium Chloride (0.9 % Sodium Chloride Flush 3 Ml Syringe) 3 ml IVFLUSH QSHIFT [facility] Last Admin: 05/10/21 08:08 Dose: 3 ml Documented by: RADHA Tramadol HCl (Tramadol Hcl 50 Mg Tablet) 100 mg PO Q8H [facility] Last Admin: 05/10/21 08:07 Dose: 100 mg Documented by: RADHA Trazodone HCl (Trazodone Hcl 50 Mg Tablet) 50 mg PO BEDTIME [facility] Last Admin: 05/09/21 21:34 Dose: 50 mg Documented by: HO.[email or web address] Vitamin D (Cholecalciferol (Vitamin D3) 25 Mcg Tablet) 50 mcg PO DAILY [facility] Last Admin: 05/10/21 08:09 Dose: 50 mcg Documented by: RADHA Labs CBC & Chem 7: 05/09/21 05:27 05/10/21 06:00 Labs: Laboratory Results - last 24 hr 05/10/21 06:00 Anion Gap 14 Estim Creat Clear Calc 88.8 Estimated GFR > 60 Random Glucose 94 Calcium 8.2 L Microbiology Microbiology Results: Microbiology 05/07/21 20:20 Blood Culture - Preliminary Blood - Venous No growth after 48 hours. 05/07/21 20:20 Blood Culture - Preliminary Blood - Venous No growth after 48 hours. Assessment and Plan (1) Acute ischemic colitis: Status: Acute (2) Coffee ground emesis: Status: Acute Assessment and Plan: 80-year-old male with a past medical history of hypothyroidism, PTSD, depression, anxiety, urinary incontinence presents [facility] the hospital from shelter with coffee-ground emesis 1. coffee-ground emesis- most likely upper GI bleed h/h stable ,no history of NSAID or aspirin use plan: passing gases , no bm's yet. ?clear liquid diet, on PPI IV b.i.d, ivf consult gastroenterology: recomended egd-patient declined. 2. PHILIP - most likely secondary to dehydration improved on IV fluids,gentle hydraytion for low oral inatke seems improved. 3.supraventricular tachycardia ?unclear rhythm with a heart rate in the 100's, ?blood pressure stable continue to moniter 4.lactic acidosis- most likely secondary to dehydration ?imrpved? wth ivf. 5. leukocytosis/?CT scanning was done, which was interpreted as showing portal venous gas and pneumatosis and an area of the distal left colon.? afebrile, leucocytsosis resolved. passing gases , no bm's yet. d/w surgery and Gi-currently patient is refusing surgery: Recommendation is continue IV zosyn, bowel rest, gentle IV fluids. Quality Stroke Does the patient have a stroke diagnosis?: No VTE Prior VTE?: No VTE Risk Level:: Medical - moderate - high VTE Device Contraindication: N/A - Device Ordered VTE Drug Contraindication: Treatment Not Indicated
[2021-05-10] MEDS: Acetaminophen 325 MG TABLET 650 MG PO (19:35)
[2021-05-10] MEDS: PARoxetine HCL 10 MG TABLET 15 MG PO (19:35)
[2021-05-10] MEDS: Melatonin 3 MG TABLET PO (19:36)
[2021-05-10] MEDS: traZODone HCL 50 MG TABLET PO (19:36)
[2021-05-11] MEDS: Piperacillin Sodium/Tazobactam 3.375 GM in 0.9 % Sodium Chloride 50 ML IV ×4 (03:10→19:42)
[2021-05-11 04:00] VITALS: BP 142/77; PULSE 93; RESP 16; TEMP 37.1; O2SAT 99
[2021-05-11] MEDS: Lactated Ringers 1,000 ML 100 ML IVCONT (06:10)
[2021-05-11] MEDS: Pantoprazole Sodium 40 MG/10 ML VIAL IVPUSH (06:10)
[2021-05-11] MEDS: Levothyroxine Sodium 75 MCG TABLET PO (06:10)
[2021-05-11 07:46] VITALS: BP 147/78; PULSE 98; RESP 17; TEMP 36.3; O2SAT 99
--- NOTE | 2021-05-11 08:02 | P.PNIM_ITS ---
Subjective Subjective Date of Service: 05/12/21 Interval History: fu for bowel pneumatosis Review of Systems today did not pass gases , no bm's Denies any new complaint of chest pain or shortness of breath or abdominal pain or fever or chills or nausea or vomiting Denies any cough Denies any weakness or numbness. Physical Exam Vital Signs: Vital Signs: Last Vital Signs Temp 97.3 F 05/11/21 07:46 Pulse 98 05/11/21 07:46 Resp 17 05/11/21 07:46 BP 147/78 H 05/11/21 07:46 Pulse Ox 99 05/11/21 07:46 Body Mass Index 24.3 Appearance:? not in distress.? Eyes: Pupils equal, round and reactive to light.? Sclera nonicteric.? ENT: Pharynx normal.? Moist mucous membranes. cvs: rrr, [id number] , no murmur res: clear to auscultation ,no rhonchii or wheezing abd: no rebound or guarding, no pain,bs dimished similar as yesterday. ext pulses present , no cyanosis neuro: axo3 ,moves alll extermities Objective Data Active Medications Acetaminophen (Acetaminophen 325 Mg Tablet) 650 mg PO Q4H PRN PRN Reason: pain/fever Last Admin: 05/10/21 19:35 Dose: 650 mg Documented by: DEBBIE Artificial Tears (Artificial Tears 15 Ml Drops) 1 drop EYE-BOTH DAILY [facility] Last Admin: 05/10/21 08:11 Dose: 1 drop Documented by: RADHA Docusate Sodium (Docusate Sodium 100 Mg Capsule) 100 mg PO DAILY PRN PRN Reason: Constipation Fluticasone Propionate (Fluticasone Propionate Nasal 16 Gm [place]) 1 spray NOSTRIL-B BID PRN PRN Reason: Allergy Symptoms Piperacillin Sod/Tazobactam (Sod 3.375 gm/ Sodium Chloride) 50 mls @ 100 mls/hr IV Q6H [facility] Last Infusion: 05/11/21 03:47 Dose: 0 mls/hr Documented by: DEBBIE Levothyroxine Sodium (Levothyroxine Sodium 75 Mcg Tablet) 75 mcg PO DAILY@0600 [facility] Last Admin: 05/11/21 06:10 Dose: 75 mcg Documented by: DEBBIE Lisinopril (Lisinopril 2.5 Mg Tablet) 2.5 mg PO DAILY [facility]; Protocol Last Admin: 05/10/21 08:09 Dose: 2.5 mg Documented by: RADHA Megestrol Acetate (Megestrol Acetate 400 Mg/10 Ml Oral.Susp) 400 mg PO BID [facility] Last Admin: 05/10/21 19:36 Dose: Not Given Documented by: DEBBIE Non-Admin Reason: Patient Refused Melatonin (Melatonin 3 Mg Tablet) 3 mg PO BEDTIME [facility] Last Admin: 05/10/21 19:36 Dose: 3 mg Documented by: DEBBIE Ondansetron HCl (Ondansetron Hcl 4 Mg/2 Ml Vial) 4 mg IVPUSH Q8H PRN PRN Reason: Nausea and Vomiting Oxybutynin Chloride (Oxybutynin Chloride Er 5 Mg Tab.Er.24) 10 mg PO DAILY [facility] Last Admin: 05/10/21 08:07 Dose: 10 mg Documented by: RADHA Paroxetine HCl (Paroxetine Hcl 10 Mg Tablet) 15 mg PO BEDTIME [facility] Last Admin: 05/10/21 19:35 Dose: 15 mg Documented by: DEBBIE Pharmacy Consult (Consult Rx Perform Med Rec) 1 each MISCELLANE ONCE PRN PRN Reason: Consult order Prednisone (Prednisone 5 Mg Tablet) 5 mg PO BID [facility] Last Admin: 05/10/21 19:36 Dose: 5 mg Documented by: DEBBIE Sodium Chloride (0.9 % Sodium Chloride Flush 3 Ml Syringe) 3 ml IVFLUSH QSHIFT [facility] Last Admin: 05/10/21 19:37 Dose: Not Given Documented by: DEBBIE Non-Admin Reason: IV Running Tramadol HCl (Tramadol Hcl 50 Mg Tablet) 100 mg PO Q8H [facility] Last Admin: 05/10/21 08:07 Dose: 100 mg Documented by: RADHA Trazodone HCl (Trazodone Hcl 50 Mg Tablet) 50 mg PO BEDTIME [facility] Last Admin: 05/10/21 19:36 Dose: 50 mg Documented by: DEBBIE Vitamin D (Cholecalciferol (Vitamin D3) 25 Mcg Tablet) 50 mcg PO DAILY [facility] Last Admin: 05/10/21 08:09 Dose: 50 mcg Documented by: RADHA Labs CBC & Chem 7: 05/09/21 05:27 05/10/21 06:00 Assessment and Plan (1) Acute ischemic colitis: Status: Acute Assessment and Plan: 80-year-old male with a past medical history of hypothyroidism, PTSD, depression, anxiety, urinary incontinence [facility] [place] with coffee-ground emesis 1. coffee-ground emesis- most likely upper GI bleed h/h stable ,no history of NSAID or aspirin use plan: passing gases , no bm's yet. ?full liquid diet, on PPI IV b.i.d, ivf consult gastroenterology: recomended egd-patient declined. 2. PHILIP - most likely secondary to dehydration improved on IV fluids,gentle hydraytion for low oral inatke seems improved. 3.supraventricular tachycardia ?unclear rhythm with a heart rate in the 80-90, ?blood pressure stable continue to moniter 4.lactic acidosis- most likely secondary to dehydration ?imrpved? wth ivf. 5. leukocytosis/?CT scanning was done, which was interpreted as showing portal venous gas and pneumatosis and an area of the distal left colon.? afebrile, leucocytsosis resolved. passing gases , no bm's yet. d/w surgery and Gi-currently patient is refusing surgery: Recommendation is continue IV zosyn,gentle IV fluids. Patient intermittently refusing treatment, he made aware about the risks as well as I discussed with his daughter also: Is still not past the bowels only smears also not producing much gases today also Will continue the above management He wanted to sign against the medical advice-supportive employment case manager [facility] Quality Stroke Does the patient have a stroke diagnosis?: No VTE Prior VTE?: No VTE Risk Level:: Medical - moderate - high VTE Device Contraindication: N/A - Device Ordered VTE Drug Contraindication: Treatment Not Indicated
[2021-05-11 09:03] VITALS: BP 147/78; PULSE 98
[2021-05-11] MEDS: Artificial Tears 15 ML DROPS 1 DROP EYE-BOTH (09:03)
[2021-05-11] MEDS: Megestrol Acetate 400 MG/10 ML ORAL.SUSP PO (09:03)
[2021-05-11] MEDS: lisinopriL 2.5 MG TABLET PO (09:03)
[2021-05-11] MEDS: predniSONE 5 MG TABLET PO ×2 (09:04→20:21)
[2021-05-11] MEDS: Cholecalciferol (Vitamin D3) 25 MCG TABLET 50 MCG PO (09:04)
--- NOTE | 2021-05-11 11:59 | PC.NURSE ---
Pt currently refusing vital signs. Dr. Rubin made aware.
--- NOTE | 2021-05-11 12:19 | MHC.CM.PN ---
CM INFORMED PT DEMANDING TO LEAVE AMA. PT IS A LTC RESIDENT AT [facility]. CM INFORMED MD SPOKE TO DAUGHTER WHO WAS UNABLE TO CHANGE PTS MIND. HIMANSHU ATTEMPTED TO CONTACT THE NURSING COURT MESSENGER AT [facility] TO DISCUSS DC PLANS. CALL WENT TO , MESSAGE LEFT INFORMING HIM OF SITUATION AND REQUESTING A RETURN CALL
[2021-05-11 16:00] VITALS: BP 141/75; PULSE 98; RESP 17; TEMP 36.5; O2SAT 98
[2021-05-11 20:00] VITALS: BP 127/61; PULSE 93; RESP 17; TEMP 36.4; O2SAT 97
[2021-05-11] MEDS: traZODone HCL 50 MG TABLET PO (20:20)
[2021-05-11] MEDS: PARoxetine HCL 10 MG TABLET 15 MG PO (20:21)
[2021-05-11] MEDS: Melatonin 3 MG TABLET PO (20:21)
[2021-05-11] MEDS: 0.9 % Sodium Chloride Flush 3 ML SYRINGE IVFLUSH (20:23)
[2021-05-11] MEDS: Acetaminophen 325 MG TABLET 650 MG PO (21:22)
[2021-05-12] VITALS (7 sets, daily range): BP systolic 103–148; BP diastolic 58–82; PULSE 92–107; RESP 17–18; TEMP 36.1–36.6; O2SAT 97–99
[2021-05-12] MEDS: Piperacillin Sodium/Tazobactam 3.375 GM in 0.9 % Sodium Chloride 50 ML IV ×2 (02:02→09:09)
[2021-05-12] MEDS: Levothyroxine Sodium 75 MCG TABLET PO (05:31)
[2021-05-12] MEDS: Cholecalciferol (Vitamin D3) 25 MCG TABLET 50 MCG PO (09:08)
[2021-05-12] MEDS: predniSONE 5 MG TABLET PO ×2 (09:08→20:33)
[2021-05-12] MEDS: lisinopriL 2.5 MG TABLET PO (09:08)
[2021-05-12] MEDS: 0.9 % Sodium Chloride Flush 3 ML SYRINGE IVFLUSH (09:11)
[2021-05-12] MEDS: Artificial Tears 15 ML DROPS 1 DROP EYE-BOTH (09:25)
--- NOTE | 2021-05-12 10:56 | PM.DS ---
DS: Providers Provider Date of Service: 05/12/21 Date of admission: 05/07/21 22:54 Date of discharge: 05/12/21 Primary care physician: Unknown Physician Consults: 05/08/21 07:06 Consult to Gastroenterology Routine Consulting Provider: Balta Valentin Reason for consultation: coffee ground emesis Has provider been notified: No 05/08/21 07:56 Consult to General Surgery Routine Consulting Provider: Barrington Majano Reason for consultation: ischemic descending colon wtih sig distended abdomen Has provider been notified: No DS: Diagnosis Discharge Diagnosis (1) Acute ischemic colitis: Status: Acute DS: Summary Hospital Course Hospital Course: 80-year-old male with past medical history of dementia, depression, hypothyroidism, prostate cancer, PTSD, urinary incontinence who [facility] 1 episode of coffee-ground emesis.? Patient is alert and oriented x3.? He reports that he had 1 episode of vomiting this morning with no abdominal pain, with no previous similar episode, no chest pain, no palpitations, although reports that he was told his heart rate is in the 120s.? Patient denies any diarrhea or constipation, no urinary symptoms and no lower extremity edema.? He denies any chest pain, no shortness of breath, no headache, no change in vision, no numbness tingling or weakness. To the ED patient vitals are significant for a temp of 98.5, heart rate of 130, respiratory rate of 20, blood pressure of 94/46 that improved to 1 10/66, satting 94% on room air Labs are significant for WBC count of 20, 37 with a creatinine of 1.30 with a baseline of 0.9, lactic acid of 4.2, ALT of 80, lipase of 4, Chest x-ray shows unremarkable chest exam. Hospital course: 80-year-old male with a past medical history of hypothyroidism, PTSD, depression, anxiety, urinary incontinence [facility] with coffee-ground em[facility] Hospital course: came with possible ischemic colitis and coffee-ground, philip: Seen by surgery and GI: He refused further treatment. Risk of refusing treatments have discussed with him and his daughter in detail length including , this still refused. Treated with bowel rest, antibiotics zosyn 5 days-currently tolerating diet full liquid. Denies any bowel pains or any new fever or chills. Leukocytosis resolved as well as tachycardia seems to be improving PHILIP improved with hydration. Past the 2 BMs last night., currently asymptomatic. d/w surgery no need for further antibiotics upon discharge. Further management outpatient as per rehab. Upon discharge family decided for DNR. Above management discussed with patient and his daughter as well as his primary care is also aware about it, patient is going back [facility] Further management as per [facility] as per PCP. Time Spent with Patient Time attestation: Total time spent providing and/or coordinating discharge services: Discharge coordination time: Greater than 30 minutes Quality: Stroke Does the patient have a stroke diagnosis?: No Physical Exam Vital Signs: Vital Signs: Last Vital Signs Temp 97.4 F 05/12/21 08:00 Pulse 99 05/12/21 09:08 Resp 18 05/12/21 08:00 BP 110/70 05/12/21 09:08 Pulse Ox 97 05/12/21 08:00 Body Mass Index 24.3 Appearance:? not in distress.? Eyes: Pupils equal, round and reactive to light.? Sclera nonicteric.? ENT: Pharynx normal.? Moist mucous membranes. cvs: rrr, [id number] , no murmur res: clear to auscultation ,no rhonchii or wheezing abd: no rebound or guarding, no pain,bs?present . ext pulses present , no cyanosis neuro: axo3 ,moves alll extermities DS: Data Data Completed and Pending Labs on day of discharge: Preliminary micro results at discharge 05/07/21 20:20 Blood Culture - Preliminary Blood - Venous No growth after 48 hours. 05/07/21 20:20 Blood Culture - Preliminary Blood - Venous No growth after 48 hours. Discharge Plan Discharge Patient Disposition: [facility] Discharge Diagnosis: Possible ischemic colitis, PHILIP. Referrals: Physician,Unknown [Primary Care Provider] - 1 Week Discharge Medications: Continued paroxetine HCl 10 mg Tablet 15 mg PO BEDTIME RF: 0 trazodone 50 mg Tablet 50 mg PO BEDTIME RF: 0 prednisone 5 mg Tablet 5 mg PO BID RF: 0 melatonin 3 mg Tablet 3 mg PO BEDTIME RF: 0 levothyroxine 75 mcg Tablet 75 mcg PO DAILY@0600 RF: 0 lisinopril 2.5 mg Tablet 2.5 mg PO DAILY RF: 0 cholecalciferol (vitamin D3) 25 mcg (1,000 unit) Tablet 50 mcg PO DAILY RF: 0 carboxymethylcellulose sodium 1 % Drops 1 drp OPHTHALMIC (EYE) DAILY RF: 0 acetaminophen 325 mg Tablet 650 mg PO Q4H PRN (Reason: pain/fever) RF: 0 fluticasone propionate 50 mcg/actuation [place],Suspension 1 spray INTRANASAL BID PRN (Reason: Allergy Symptoms) RF: 0 Lactobacillus acidophilus Capsule 2,000 mmu cells PO BID RF: 0 megestrol 400 mg/10 mL (10 mL) Suspension 400 mg PO BID RF: 0 Held oxybutynin chloride 10 mg Tablet Extended Release 24hr 10 mg PO DAILY RF: 0 Hold Instructions: Resume on 05/19/21. avoid consitpation tramadol 100 mg Tablet 100 mg PO Q8H RF: 0 Hold Instructions: Resume on 05/19/21. Discharge Orders: Discharge Order (Routine); Ordered 05/12/21 Ordered By: Devorah Rubin Diet: advance to usual diet, low fat, low cholesterol and low salt diet Activity on Discharge: As tolerated Stand Alone Forms: Patient Portal Discharge page Care Plan Goals: Patient came with possible ischemic colitis and coffee-ground: Seen by surgery and GI: He refused further treatment. Risk of refusing treatments have discussed with him and his daughter in detail length including , this still refused. Treated with bowel rest, antibiotics-currently tolerating diet full liquid at least Past the 2 BMs last night., currently asymptomatic. Further management outpatient as per rehab. Health Concerns: As above. Plan of Treatment: As above. Assessment: As above.
--- NOTE | 2021-05-12 11:25 | MHC.CM.PN ---
PER MD ROUNDS, PT TO DC BACK TO [facility] TODAY. CM ATTEMPTED TO CONTACT NURSING WHARFINGER CHIEF (ABHI [phone]). A VM MESSAGE WAS LEFT INFORMING HER OF DC AND REQUESTING A RETURN CALL.
--- NOTE | 2021-05-12 11:58 | PM.PNGS ---
Subjective Subjective Date of Service: 05/12/21 Interval history: Continues to deny any abdominal pain Has remained stable with regards to vital signs No vomiting Physical Exam Vital Signs: Vital Signs: Last Vital Signs Temp 97.4 F 05/12/21 08:00 Pulse 99 05/12/21 09:08 Resp 18 05/12/21 08:00 BP 110/70 05/12/21 09:08 Pulse Ox 97 05/12/21 08:00 Body Mass Index 24.3 Const: General: comfortable and no acute distress Resp: Effort & Inspection: normal respiratory effort Cardio: Rate: regular rate GI: Palpation (GI): Soft to palpation, not firm, nontender and no guarding Procedures Date of Service Date of Service: 05/12/21 Progress Note: A&P Assessment and plan (1) Acute ischemic colitis: Status: Acute Assessment and Plan: Had pneumatosis, portal venous gas Remained asymptomatic however Diet as tolerated Rest of management as per the hospitalist service Patient says that is not considering any surgery at all Fall Risk Details Current Medications: Current Medications Acetaminophen (Acetaminophen 325 Mg Tablet) 650 mg PO Q4H PRN PRN Reason: pain/fever Last Admin: 05/11/21 21:22 Dose: 650 mg Documented by: Artificial Tears (Artificial Tears 15 Ml Drops) 1 drop EYE-BOTH DAILY [facility] Last Admin: 05/12/21 09:25 Dose: 1 drop Documented by: Docusate Sodium (Docusate Sodium 100 Mg Capsule) 100 mg PO DAILY PRN PRN Reason: Constipation Fluticasone Propionate (Fluticasone Propionate Nasal 16 Gm [place]) 1 spray NOSTRIL-B BID PRN PRN Reason: Allergy Symptoms Piperacillin Sod/Tazobactam (Sod 3.375 gm/ Sodium Chloride) 50 mls @ 100 mls/hr IV Q6H [facility] Last Infusion: 05/12/21 09:56 Dose: Infused Documented by: Levothyroxine Sodium (Levothyroxine Sodium 75 Mcg Tablet) 75 mcg PO DAILY@0600 [facility] Last Admin: 05/12/21 05:31 Dose: 75 mcg Documented by: Lisinopril (Lisinopril 2.5 Mg Tablet) 2.5 mg PO DAILY [facility]; Protocol Last Admin: 05/12/21 09:08 Dose: 2.5 mg Documented by: Megestrol Acetate (Megestrol Acetate 400 Mg/10 Ml Oral.Susp) 400 mg PO BID [facility] Last Admin: 05/12/21 09:16 Dose: Not Given Documented by: Melatonin (Melatonin 3 Mg Tablet) 3 mg PO BEDTIME [facility] Last Admin: 05/11/21 20:21 Dose: 3 mg Documented by: Ondansetron HCl (Ondansetron Hcl 4 Mg/2 Ml Vial) 4 mg IVPUSH Q8H PRN PRN Reason: Nausea and Vomiting Oxybutynin Chloride (Oxybutynin Chloride Er 5 Mg Tab.Er.24) 10 mg PO DAILY [facility] Last Admin: 05/10/21 08:07 Dose: 10 mg Documented by: Paroxetine HCl (Paroxetine Hcl 10 Mg Tablet) 15 mg PO BEDTIME [facility] Last Admin: 05/11/21 20:21 Dose: 15 mg Documented by: Pharmacy Consult (Consult Rx Perform Med Rec) 1 each MISCELLANE ONCE PRN PRN Reason: Consult order Prednisone (Prednisone 5 Mg Tablet) 5 mg PO BID [facility] Last Admin: 05/12/21 09:08 Dose: 5 mg Documented by: Sodium Chloride (0.9 % Sodium Chloride Flush 3 Ml Syringe) 3 ml IVFLUSH QSHIFT [facility] Last Admin: 05/12/21 09:11 Dose: 3 ml Documented by: Tramadol HCl (Tramadol Hcl 50 Mg Tablet) 100 mg PO Q8H [facility] Last Admin: 05/10/21 08:07 Dose: 100 mg Documented by: Trazodone HCl (Trazodone Hcl 50 Mg Tablet) 50 mg PO BEDTIME [facility] Last Admin: 05/11/21 20:20 Dose: 50 mg Documented by: Vitamin D (Cholecalciferol (Vitamin D3) 25 Mcg Tablet) 50 mcg PO DAILY [facility] Last Admin: 05/12/21 09:08 Dose: 50 mcg Documented by: Time Spent With Patient Time: Total time spent is greater than 50% in coordination of care (as documented) at patient's floor/unit and/or counseling patient: Time with patient: 15 - 24 minutes Quality Stroke Does the patient have a stroke diagnosis?: No VTE Prior VTE?: No VTE Risk Level:: Medical - moderate - high VTE Device Contraindication: N/A - Device Ordered VTE Drug Contraindication: Treatment Not Indicated
--- NOTE | 2021-05-12 12:29 | MHC.CM.PN ---
Addendum entered by Melba Aguila 05/12/21 15:40: HIMANSHU SPOKE TO ABHI AT [facility] WHO REPORTS THEY ARE NOW WONDERING WHY THE PT IS NOT RETURNING ON PROCEDURE TECH STATUS. SHE REPORTS THE FINANCIAL SYSTEMS DIRECTOR HAD INDICATED THAT IS HOW THEY WOULD EXPECT HIM TO RETURN IT HE REFUSED SURGERY. HIMANSHU EXPLAINED NEITHER PT NOR HIS DAUGHTER APPEARED READY FOR PROCEDURE TECH. CM AGREED TO SEND MORE CLINICAL INFORMATION AND ABHI INDICATED SHE WOULD REVIEW THEM WITH THE FINANCIAL SYSTEMS DIRECTOR./ SHE ALSO REPORTED DUE TO THE TIME OF DAY, SHE DID NOT FEEL THEY COULD TAKE THE PT BACK BEFORE TOMORROW. SHE INDICATED SHE WOULD CALL CM BACK CM THEN CALLED PTS DAUGHTER, ROULA ([phone]) AND PROVIDED THE ABOVE INFORMATION. SHE REPORTS SHE DOES NOT FEEL DELAYING DC AGAIN WILL BE GOOD FOR THE PTS MENTAL HEALTH. SHE CALLED PTS AUXILIARY POWERPLANT OPERATOR AT THE [facility] AND ASKED HER TO SPEAK TO THE DIRECTOR TO TRY TO GET THE PT BACK TODAY. CM NOW AWAITING RETURN CALLS Addendum entered by Melba Aguila 05/12/21 14:22: CM CALLED PTS DAUGHTER, ROULA WHO IS A PA. SHE REPORTS SHE UNDERSTANDS THE DILEMMA [facility] CANNOT KEEP THE PT IN THE CURRENT CONDITION WHILE HE IS A FULL CODE, HE WOULD HAVE TO BE SENT TO THE HOSPITAL. SHE REPORTS SHE IS CONCERNED THE PT MAY BECOME DEFENSIVE IF CM INITIATES THIS DISCUSSION WITH HIM AND AGREES TO JOIN VIA SPEAKER PHONE. CM MET WITH PT ALONG WITH HIS DAUGHTER WHO WAS ON SPEAKER PHONE. ROULA EXPLAINED WHAT WAS HAPPENING AND PT REPORTED HE DID NOT REALLY WANT TO BE FULL CODE ANYWAY, HE REPORTS HE DID IT FOR ROULA AND BECAUSE HE WANTED TO BE HERE TO MEET HER NEW BABY DUE IN AUGUST. ROULA CLARIFIES, PT IS NOT GOING TO PROCEDURE TECH STATUS, HE IS JUST CHANGING HIS CODE STATUS. PT AGREES. [facility]OLST WAS COMPLETED, UPLOADED TO [employer] AND FAXED TO [facility]. CM LEFT A VM MESSAGE FOR ABHI AT [facility] INFORMING HER OF THE NEW MOLST AND REQUESTING A RETURN CALL TO [facility] PT WILL NEED BLS TRANSPORT Original Note: PT CLEARED TO DC HOWEVER [facility] INDICATED THEY ARE UNABLE TO ACCEPT HIM AT THIS TIME. PT CONTINUES TO BE A FULL CODE HOWEVER REFUSES TO HAVE TREATMENT, PER ABHI [phone] AT [facility], PT WOULD BE SENT RIGHT BACK TO THE ED. HIMANSHU WILL DISCUSS THIS WITH THE
[2021-05-12 12:55] LABS: COVID-19 Test Negative (Negative)
--- NOTE | 2021-05-12 15:06 | HO.PM.IMPN ---
Subjective Subjective Date of Service: 05/12/21 Interval History: Ischemic colitis Review of Systems Denies any new symptoms including abdominal pain or fever or chills or cough or phlegm Or nausea or vomiting. Physical Exam Vital Signs: Vital Signs: Last Vital Signs Temp 97.0 F 05/12/21 12:00 Pulse 99 05/12/21 09:08 Resp 18 05/12/21 08:00 BP 110/70 05/12/21 09:08 Pulse Ox 98 05/12/21 12:00 Body Mass Index 24.3 ?Appearance:? not in distress.? Eyes: Pupils equal, round and reactive to light.? Sclera nonicteric.? ENT: Pharynx normal.? Moist mucous membranes. cvs: rrr, [id number] , no murmur res: clear to auscultation ,no rhonchii or wheezing abd: no rebound or guarding, no pain,bs?present . ext pulses present , no cyanosis neuro: axo3 ,moves alll extermities Objective Data Active Medications Acetaminophen (Acetaminophen 325 Mg Tablet) 650 mg PO Q4H PRN PRN Reason: pain/fever Last Admin: 05/11/21 21:22 Dose: 650 mg Documented by: BETH Artificial Tears (Artificial Tears 15 Ml Drops) 1 drop EYE-BOTH DAILY [facility] Last Admin: 05/12/21 09:25 Dose: 1 drop Documented by: [facility] Docusate Sodium (Docusate Sodium 100 Mg Capsule) 100 mg PO DAILY PRN PRN Reason: Constipation Fluticasone Propionate (Fluticasone Propionate Nasal 16 Gm [place]) 1 spray NOSTRIL-B BID PRN PRN Reason: Allergy Symptoms Piperacillin Sod/Tazobactam (Sod 3.375 gm/ Sodium Chloride) 50 mls @ 100 mls/hr IV Q6H [facility] Last Infusion: 05/12/21 09:56 Dose: 0 mls/hr Documented by: ST[place] Levothyroxine Sodium (Levothyroxine Sodium 75 Mcg Tablet) 75 mcg PO DAILY@0600 [facility] Last Admin: 05/12/21 05:31 Dose: 75 mcg Documented by: BETH Lisinopril (Lisinopril 2.5 Mg Tablet) 2.5 mg PO DAILY [facility]; Protocol Last Admin: 05/12/21 09:08 Dose: 2.5 mg Documented by: [place] Megestrol Acetate (Megestrol Acetate 400 Mg/10 Ml Oral.Susp) 400 mg PO BID [facility] Last Admin: 05/12/21 09:16 Dose: Not Given Documented by: [place] Non-Admin Reason: Patient Refused Melatonin (Melatonin 3 Mg Tablet) 3 mg PO BEDTIME [facility] Last Admin: 05/11/21 20:21 Dose: 3 mg Documented by: BETH Ondansetron HCl (Ondansetron Hcl 4 Mg/2 Ml Vial) 4 mg IVPUSH Q8H PRN PRN Reason: Nausea and Vomiting Oxybutynin Chloride (Oxybutynin Chloride Er 5 Mg Tab.Er.24) 10 mg PO DAILY [facility] Last Admin: 05/10/21 08:07 Dose: 10 mg Documented by: RADHA Paroxetine HCl (Paroxetine Hcl 10 Mg Tablet) 15 mg PO BEDTIME [facility] Last Admin: 05/11/21 20:21 Dose: 15 mg Documented by: BETH Pharmacy Consult (Consult Rx Perform Med Rec) 1 each MISCELLANE ONCE PRN PRN Reason: Consult order Prednisone (Prednisone 5 Mg Tablet) 5 mg PO BID [facility] Last Admin: 05/12/21 09:08 Dose: 5 mg Documented by: [place] Sodium Chloride (0.9 % Sodium Chloride Flush 3 Ml Syringe) 3 ml IVFLUSH QSHIFT [facility] Last Admin: 05/12/21 09:11 Dose: 3 ml Documented by: [place] Tramadol HCl (Tramadol Hcl 50 Mg Tablet) 100 mg PO Q8H [facility] Last Admin: 05/10/21 08:07 Dose: 100 mg Documented by: RADHA Trazodone HCl (Trazodone Hcl 50 Mg Tablet) 50 mg PO BEDTIME [facility] Last Admin: 05/11/21 20:20 Dose: 50 mg Documented by: BETH Vitamin D (Cholecalciferol (Vitamin D3) 25 Mcg Tablet) 50 mcg PO DAILY [facility] Last Admin: 05/12/21 09:08 Dose: 50 mcg Documented by: STAN[place]ORD Labs CBC & Chem 7: 05/09/21 05:27 05/10/21 06:00 Labs: Laboratory Results - last 24 hr 05/12/21 12:20 COVID-19 ([facility]) Negative COVID-19 Clin Com See Note Assessment and Plan (1) Acute ischemic colitis: Status: Acute Assessment and Plan: 80-year-old male with a past medical history of hypothyroidism, PTSD, depression, anxiety, urinary incontinence presents to the hospital from care home with coffee-ground emesis 1. coffee-ground emesis- most likely upper GI bleed h/h stable ,no history of NSAID or aspirin use plan: passing gases , has 2 bm yesterday. ?advanced diet, on PPI po consult gastroenterology: recomended egd-patient declined. 2. PHILIP - most likely secondary to dehydration improved on IV fluids,gentle hydraytion for low oral inatke seems improved. 3.supraventricular tachycardia ?unclear rhythm with a heart rate in the 80-90, ?blood pressure stable continue to moniter 4.lactic acidosis- most likely secondary to dehydration ?improved ? wth ivf. 5. leukocytosis/?CT scanning was done, which was interpreted as showing portal venous gas and pneumatosis and an area of the distal left colon.? afebrile, leucocytsosis resolved. passing gases , no bm's yet. d/w surgery and Gi-currently patient is refusing surgery: Recommendation is continue IV zosyn,gentle IV fluids. will d/w surgery for futher antibiotics use Patient and his daughter decided for DNR Quality Stroke Does the patient have a stroke diagnosis?: No VTE Prior VTE?: No VTE Risk Level:: Medical - moderate - high VTE Device Contraindication: N/A - Device Ordered VTE Drug Contraindication: Treatment Not Indicated
--- NOTE | 2021-05-12 18:30 | PC.NURSE ---
Patient 89 has no IV access, patient refused. Doctor aware.
[2021-05-12] MEDS: Acetaminophen 325 MG TABLET 650 MG PO (20:33)
[2021-05-12] MEDS: Melatonin 3 MG TABLET PO (20:33)
[2021-05-12] MEDS: PARoxetine HCL 10 MG TABLET 15 MG PO (20:33)
[2021-05-12] MEDS: traZODone HCL 50 MG TABLET PO (20:33)
[2021-05-13] VITALS: BP 154/77; PULSE 96; RESP 18; TEMP 36.6; O2SAT 96
[2021-05-13 03:57] VITALS: BP 132/72; PULSE 82; RESP 18; TEMP 36.2; O2SAT 97
[2021-05-13] MEDS: Levothyroxine Sodium 75 MCG TABLET PO (05:47)
[2021-05-13 07:29] VITALS: BP 139/87; PULSE 110; RESP 16; TEMP 36.8; O2SAT 99
[2021-05-13] MEDS: Cholecalciferol (Vitamin D3) 25 MCG TABLET 50 MCG PO (09:20)
[2021-05-13] MEDS: predniSONE 5 MG TABLET PO (09:20)
[2021-05-13] MEDS: lisinopriL 2.5 MG TABLET PO (09:20)
[2021-05-13] MEDS: Artificial Tears 15 ML DROPS 1 DROP EYE-BOTH (09:21)
--- NOTE | 2021-05-13 09:25 | P.DS_ITS ---
DS: Providers Provider Date of Service: 05/13/21 Date of admission: 05/07/21 22:54 Primary care physician: Unknown Physician Consults: 05/08/21 07:06 Consult to Gastroenterology Routine Consulting Provider: Balta Valentin Reason for consultation: coffee ground emesis Has provider been notified: No 05/08/21 07:56 Consult to General Surgery Routine Consulting Provider: Barrington Majano Reason for consultation: ischemic descending colon wtih sig distended abdomen Has provider been notified: No DS: Diagnosis Discharge Diagnosis (1) Acute ischemic colitis: Status: Acute DS: Summary Hospital Course Hospital Course: 80-year-old male with past medical history of dementia, depression, hypothyroidism, prostate cancer, PTSD, urinary incontinence who presents to the hospital from detention after 1 episode of coffee-ground emesis.? Patient is alert and oriented x3.? He reports that he had 1 episode of vomiting this morning with no abdominal pain, with no previous similar episode, no chest pain, no palpitations, although reports that he was told his heart rate is in the 120s.? Patient denies any diarrhea or constipation, no urinary symptoms and no lower extremity edema.? He denies any chest pain, no shortness of breath, no headache, no change in vision, no numbness tingling or weakness. To the ED patient vitals are significant for a temp of 98.5, heart rate of 130, respiratory rate of 20, blood pressure of 94/46 that improved to 1 , satting 94% on room air Labs are significant for WBC count of 20, 37 with a creatinine of 1.30 with a baseline of 0.9, lactic acid of 4.2, ALT of 80, lipase of 4, Chest x-ray shows unremarkable chest exam. Hospital course: 80-year-old male with a past medical history of hypothyroidism, PTSD, depression, anxiety, urinary incontinence presents to the hospital from detention with coffee-ground emesis Hospital course: Came with possible ischemic colitis and coffee-ground, philip: Seen by surgery and GI: He refused further treatment. Risk of refusing treatments have discussed with him and his daughter in detail length including , but he still refuses \Treated with bowel rest, antibiotics zosyn 5 days-currently tolerating regular diet. Has no abdominal pain, no fever, leukocytosis resolved. PHILIP resolved with IV fluid. Surgery recommend no further antibiotics. Has had bowel movement. He has changed his code status to DNR/DNIHe [facility]. Time Spent with Patient Time attestation: Total time spent providing and/or coordinating discharge services: Discharge coordination time: Greater than 30 minutes Quality: Stroke Does the patient have a stroke diagnosis?: No Physical Exam Vital Signs: Vital Signs: Last Vital Signs Temp 98.3 F 05/13/21 07:29 Pulse 110 H 05/13/21 07:29 Resp 16 05/13/21 07:29 BP 139/87 05/13/21 07:29 Pulse Ox 99 05/13/21 07:29 Body Mass Index 24.3 DS: Data Data Completed and Pending Labs on day of discharge: Laboratory Results - last 24 hr 05/12/21 12:20 COVID-19 ([facility]) Negative COVID-19 Clin Com See Note Discharge Plan Discharge Anticipated Discharge Date/Time: 05/13/21 09:24 Patient Disposition: Xfer SNF Discharge Diagnosis: Possible ischemic colitis, PHILIP. Referrals: Physician,Unknown [Primary Care Provider] - 1 Week Discharge Medications: Continued paroxetine HCl 10 mg Tablet 15 mg PO BEDTIME RF: 0 trazodone 50 mg Tablet 50 mg PO BEDTIME RF: 0 prednisone 5 mg Tablet 5 mg PO BID RF: 0 melatonin 3 mg Tablet 3 mg PO BEDTIME RF: 0 levothyroxine 75 mcg Tablet 75 mcg PO DAILY@0600 RF: 0 lisinopril 2.5 mg Tablet 2.5 mg PO DAILY RF: 0 cholecalciferol (vitamin D3) 25 mcg (1,000 unit) Tablet 50 mcg PO DAILY RF: 0 carboxymethylcellulose sodium 1 % Drops 1 drp OPHTHALMIC (EYE) DAILY RF: 0 acetaminophen 325 mg Tablet 650 mg PO Q4H PRN (Reason: pain/fever) RF: 0 fluticasone propionate 50 mcg/actuation [place],Suspension 1 spray INTRANASAL BID PRN (Reason: Allergy Symptoms) RF: 0 Lactobacillus acidophilus Capsule 2,000 mmu cells PO BID RF: 0 megestrol 400 mg/10 mL (10 mL) Suspension 400 mg PO BID RF: 0 Held oxybutynin chloride 10 mg Tablet Extended Release 24hr 10 mg PO DAILY RF: 0 Hold Instructions: Resume on 05/19/21. avoid consitpation tramadol 100 mg Tablet 100 mg PO Q8H RF: 0 Hold Instructions: Resume on 05/19/21. Discharge Orders: Discharge Order (Routine); Ordered 05/12/21 Ordered By: Devorah Rubin Diet: advance to usual diet, low fat, low cholesterol and low salt diet Activity on Discharge: As tolerated Stand Alone Forms: Patient Portal Discharge page Care Plan Goals: Patient came with possible ischemic colitis and coffee-ground: Seen by surgery and GI: He refused further treatment. Risk of refusing treatments have discussed with him and his daughter in detail length including , this still refused. Treated with bowel rest, antibiotics-currently tolerating diet full liquid at least Past the 2 BMs last night., currently asymptomatic. Further management outpatient as per rehab. Health Concerns: As above. Plan of Treatment: As above. Assessment: As above.
[2021-05-13] MEDS: Acetaminophen 325 MG TABLET 650 MG PO (09:28)
--- NOTE | 2021-05-13 09:29 | MHC.CM.PN ---
PATIENT IS RETURNING TO [facility]. TIME SCHEDULED FRO 1100 RN, UNIT, PATIENT, AND DAUGHTER ROULA ([phone]) AWARE OF PLAN. DC SUMMARY AND COVID RESULTS TO BE FAXED TO ATT: MADELINE Samuel @ [phone] IMM 05/12 IN CHART.
== END 2021-05-13 11:43 | disposition skilled nursing facility (03) | DRG 394 ==
LOC: HO.ED 21:34 → HO.EDOVER 23:30 → HO.S3 05-08 11:14
PROVIDERS: Internal Medicine; Admitting Provider Internal Medicine; Emergency Provider Emergency Medicine; Visit Provider Internal Medicine
DX: K55.039 Acute (reversible) ischemia of large intestine, extent unspecified (principal); I47.1 Supraventricular tachycardia; E87.2 Acidosis; Z20.822 Contact with and (suspected) exposure to COVID-19; E86.0 Dehydration; E03.9 Hypothyroidism, unspecified; F03.90 Unspecified dementia, unspecified severity, without behavioral disturbance, psychotic disturbance, mood disturbance, and anxiety; F43.10 Post-traumatic stress disorder, unspecified; Z87.891 Personal history of nicotine dependence; Z79.51 Long term (current) use of inhaled steroids; Z79.52 Long term (current) use of systemic steroids; Z79.891 Long term (current) use of opiate analgesic; Z79.890 Hormone replacement therapy; Z79.899 Other long term (current) drug therapy
CPT/HCPCS: 36415; 71045; 74176; 80048; 80076; 83605; 83690; 83880; 84484; 85025; 85027; 85610; 85730; 87040; 87635; 93005; 96361; 96365; 96375; 99285; J2543

== ENCOUNTER 2021-06-10 07:55 | Outpatient (REF) | payer MEDICARE, SELFPAY ==
[2021-06-10 07:50] LABS: MANUAL DIFF FLAG NO
[2021-06-10 07:51] LABS: Basophils Percent Auto 0.3 % (0-2); Eosinophils Absolute Auto 0.1 X10*3/uL (0.0-0.4); Eosinophils Percent Auto 1.4 % (0-4); Hematocrit 34.8 % (42-52); Hemoglobin 11.9 g/dl (14.0-18.0); Imm Gran Abs Auto 0.11 X10*3/uL (0.00-0.03); Imm Gran Pct Auto 1.7 % (0.0-0.4); Lymphocytes Absolute Auto 1.4 X10*3/uL (1.2-4.9); Mean Corpuscular HGB Conc 34.2 g/dl (31.0-36.0); Mean Corpuscular Hemoglobin 31.8 pg (27.0-33.0); Monocytes Absolute Auto 0.4 X10*3/uL (0.1-1.2); Monocytes Percent Auto 6.4 % (2-11); Neutrophils Absolute Auto 4.4 X10*3/uL (2.0-8.3); Neutrophils Percent Auto 68.2 % (45-73); Platelet Count 143 X10*3/uL (160-400); Red Blood Count 3.74 X10*6/uL (4.60-5.80); Red Cell Distribution Width 13.8 % (11.0-16.0); White Blood Count 6.5 X10*3/uL (4.8-10.8)
[2021-06-10 08:58] LABS: Alanine Aminotransferase 54 U/L (0-40); Albumin Level 2.8 g/dL (3.5-5.0); Alkaline Phosphatase 71 U/L (39-117); Anion Gap 10 (12-20); Aspartate Amino Transferase 23 U/L (5-37); Bilirubin Total 0.7 mg/dL (0.0-1.0); Blood Urea Nitrogen 13 mg/dL (9-16); Calcium 8.2 mg/dL (8.4-10.2); Carbon Dioxide 23 mmol/L (22-29); Chloride 106 mmol/L (96-108); Estimated Glomerular Filt Rate > 60; Glucose Fasting 70 mg/dL (60-99); Potassium 4.3 mmol/L (3.3-5.1); Sodium 135 mmol/L (135-145)
== END 2021-06-10 07:56 | disposition home or self-care (01) ==
LOC: HO.HSH3E 07:55
PROVIDERS: Visit Provider Internal Medicine Medical Oncology
DX: K52.89 Other specified noninfective gastroenteritis and colitis (principal); N17.9 Acute kidney failure, unspecified; E87.2 Acidosis
CPT/HCPCS: 36415; 80053; 83605; 85025

== ENCOUNTER 2021-07-02 07:07 | Outpatient (REF) | payer MEDICARE, MEDICAID, SELFPAY ==
[2021-07-02 07:52] LABS: Basophils Percent Auto 0.1 % (0-2); Eosinophils Percent Auto 0.1 % (0-4); Hematocrit 35.6 % (42.0-52.0); Hemoglobin 12.1 g/dl (14.0-18.0); Imm Gran Abs Auto 0.07 X10*3/uL (0.00-0.03); Lymphocytes Absolute Auto 1.5 X10*3/uL (1.2-4.9); Lymphocytes Percent Auto 21.5 % (20-40); Mean Corpuscular Hemoglobin 32.2 pg (27.0-33.0); Mean Corpuscular Volume 94.7 fL (80.0-98.0); Mean Platelet Volume 10.9 fL (9.4-12.4); Monocytes Absolute Auto 0.5 X10*3/uL (0.1-1.2); Monocytes Percent Auto 7.8 % (2-11); Neutrophils Absolute Auto 4.7 x10*3/uL (2.0-8.3); Neutrophils Percent Auto 69.5 % (45-73); Platelet Count 207 X10*3/uL (160-400); Red Blood Count 3.76 X10*6/uL (4.60-5.80); Red Cell Distribution Width 14.7 % (11.0-16.0); White Blood Count 6.8 X10*3/uL (4.8-10.8)
[2021-07-02 07:53] LABS: MANUAL DIFF FLAG NO
[2021-07-02 08:10] LABS: Alanine Aminotransferase 45 U/L (0-40); Albumin Level 2.7 g/dL (3.5-5.0); Alkaline Phosphatase 83 U/L (39-117); Anion Gap 11 (12-20); Aspartate Amino Transferase 18 U/L (5-37); Bilirubin Total 1.1 mg/dL (0.0-1.0); Blood Urea Nitrogen 18 mg/dL (9-16); Calcium 8.7 mg/dL (8.4-10.2); Carbon Dioxide 26 mmol/L (22-29); Chloride 101 mmol/L (96-108); Estimated Glomerular Filt Rate > 60; Glucose Fasting 109 mg/dL (60-99); Potassium 4.2 mmol/L (3.3-5.1); Sodium 134 mmol/L (135-145); Total Protein 5.1 g/dL (6.5-8.0)
[2021-07-02 08:34] LABS: Prostate Specific Antigen 29.77 ng/mL (<0.05-4.0)
== END 2021-07-02 07:08 | disposition home or self-care (01) ==
LOC: HO.HSH3E 07:07
PROVIDERS: Visit Provider Internal Medicine Medical Oncology
DX: Z12.5 Encounter for screening for malignant neoplasm of prostate (principal); C61 Malignant neoplasm of prostate
CPT/HCPCS: 36415; 80053; 84153; 85025